=== PATIENT | female | born 1990 | race Caucasian/White ===

== ENCOUNTER → 2019-03-14 16:48 | Outpatient (CLI) | payer OTHER, SELFPAY ==
[2018-10-18 10:30] VITALS: BMI 23.3
[2019-03-14 19:25] LABS: Chlamydia Trachomatis by PCR Negative (Negative); Neisserai gonorrhoeae by PCR Negative (Negative); Probe Check PASS; Sample Adequacy Control PASS; Specimen Processing Control PASS
[2019-03-20 13:29] LABS: HPV Reflexed? NOT INDICATED
== END ==
PROVIDERS: Visit Provider Obstetrics & Gynecology
DX: Z11.3 Encounter for screening for infections with a predominantly sexual mode of transmission (principal); Z12.4 Encounter for screening for malignant neoplasm of cervix; Z32.01 Encounter for pregnancy test, result positive
CPT/HCPCS: 87491; 87591; 88175; G0145

== ENCOUNTER → 2019-03-29 14:01 | Outpatient (CLI) | payer OTHER, SELFPAY ==
[2018-10-18 10:30] VITALS: BMI 23.3
--- NOTE | 2019-03-29 14:04 | US_ITS ---
STUDY: FIRST TRIMESTER OBSTETRICAL ULTRASOUND REASON FOR EXAM: Female, 29 years old early viability LMP: TECHNIQUE: Transvaginal TECHNICAL QUALITY: Adequate. PRIOR ULTRASOUND: None. FINDINGS: There is visualization of a single gestational sac in a normal intrauterine position. The mean sac diameter (MSD) measures 3.8 cm, indicating an estimated gestational age (EGA) of 9 weeks, 2 days. The gestational sac shape is within normal limits. There is a visualized yolk sac. The yolk sac measures 5 mm. The placenta is non-visualized. There is visualization of a live embryo. The crown-rump length (CRL) measures 3.3 cm, indicating an estimated gestational age (EGA) of 9 weeks, 6 days. There is demonstrated cardiac activity with a heart rate of 164 bpm. The estimated gestation age (EGA) by LMP is 10 weeks, 1 days. The estimated date of delivery (ANTONIO) by LMP is October 24, 2019. The estimated gestation age (EGA) by US is 9 weeks, 4 days. The estimated date of delivery (ANTONIO) by US is October 28, 2019. The uterus measures 11.6 x 6.7 x 5.7 cm. There is no demonstrated uterine fibroid. The cervix is closed. Small subchorionic hematoma noted measuring 2 x 2 0.1 x 0.7 cm The right ovary measures 3 x 2.5 x 2.2 cm. There is a small cyst likely corpus luteum measuring 1.3 x 1.2 x 0.9 cm. There is no visualized right adnexal mass or complex lesion. The left ovary measures 2.8 x 2.3 x 1.5 cm. There is no left ovarian cyst. There is no visualized left adnexal mass or complex lesion. There is no fluid in the cul de sac. US/Init OB < 14Wks US IMPRESSION: Viable intrauterine gestation approximately 9-10 weeks gestational age. Small subchorionic hemorrhage Right ovarian cyst likely corpus luteum Electronically Signed: Silvio Chavarria MD at 23:08 EDT , Service support ,
== END ==
PROVIDERS: Referring Provider Obstetrics & Gynecology; Visit Provider Obstetrics & Gynecology
DX: Z32.01 Encounter for pregnancy test, result positive (principal)
CPT/HCPCS: 76801

== ENCOUNTER → 2019-04-11 15:09 | Outpatient (CLI) | payer OTHER, SELFPAY ==
[2018-10-18 10:30] VITALS: BMI 23.3
[2019-04-11 16:05] LABS: Absolute Lymphocyte Count 1.86 X10^3/uL (0.83-4.51); Basophil# 0.02 X10^3/uL; Basophil% 0.3 % (0-1); Eosinophil# 0.09 X10^3/uL; Eosinophils% 1.4 % (0-5); Hemoglobin 13.5 g/dL (12.0-15.0); Lymphocyte # 1.86 X10^3/ul (4.0); Lymphocyte % 28.7 % (19-41); Mean Corp Hgb Conc 34.6 g/dL (32-36); Mean Corpuscular Hgb 30.1 pg (27.0-32.0); Mean Corpuscular Volume 86.9 fL (81-99); Mean Platelet Vol. 10.2 fl (6.2-12.0); Monocyte# 0.44 X10^3/uL; Monocyte% 6.8 % (0-10); NRBC Flagged by Analyzer 0 % (0-5); Neutrophil # 4.04 X10^3/uL (2.7-7.7); Neutrophil % 62.5 % (47-70); Platelet Count 230 K/mm3 (150-450); RBC Distribution Width SD 44.3 fl (35.1-43.9); Red Blood Count 4.49 M/mm3 (4.2-5.4); White Blood Count 6.5 K/mm3 (4.4-11.0)
[2019-04-11 16:10] LABS: Amphetamine Urine VISTA NEGATIVE (<1000 ng/mL); Barbiturate Urine VISTA NEGATIVE (< 200 ng/mL); Benzodiazepine Urine VISTA NEGATIVE (< 200 ng/mL); Cocaine Urine VISTA NEGATIVE (< 300 ng/mL); Ecstacy Urine VISTA NEGATIVE (< 500 ng/mL); Methadone Urine VISTA NEGATIVE (< 300 ng/mL); PCP Urine VISTA NEGATIVE (< 25 ng/mL); THC Urine VISTA NEGATIVE (< 50 ng/mL); Vista UDS pH Range 6
[2019-04-11 16:15] LABS: Color, Urine Straw (Yellow); Glucose, Dipstick Normal (Normal); Ketone-Dipstick Negative (Negative); Leukocyte Esterase-Dipstick Negative /ul (Negative); Nitrite-Dipstick Negative (Negative); Occult Blood-Urine Negative /ul (Negative); Protein-Dipstick Negative (Negative); Urine Bilirubin Dipstick Negative (Negative); Urine Clarity Clear (Clear); Urine Urobilinogen Normal (Normal); Urine pH 6.5 (5.0 - 8.0)
[2019-04-11 16:28] LABS: Thyroid Stim Hormone (TSH) 2.31 uIU/mL (0.358-3.74)
[2019-04-12 09:40] LABS: HIV - WCH Non-Reactive (Nonreactive); Hepatitis B Surface Antigen Non-Reactive (Nonreactive); Hepatitis C Antibody Non-Reactive (Nonreactive); Rubella IgG 233.7 IU/mL; Vitamin D,25 Hydroxy 23.2 ng/mL (29.95-100.01)
[2019-04-15 02:37] LABS: Prenatal RPR NONREACTIVE (NONREACTIVE)
== END ==
PROVIDERS: Visit Provider Obstetrics & Gynecology
DX: Z34.81 Encounter for supervision of other normal pregnancy, first trimester (principal)
CPT/HCPCS: 36415; 80307; 81002; 82306; 84443; 85025; 86703; 86762; 86803; 87340

== ENCOUNTER 2019-05-06 21:05 | Emergency (ER) | payer OTHER, BC, SELFPAY ==
[2018-10-18 10:30] VITALS: BMI 23.3
[2019-05-06 21:06] VITALS: BP 133/83; PULSE 110; RESP 20; TEMP 36.8; O2SAT 96; BMI 21.7
--- NOTE | 2019-05-06 22:04 | ED.RN ---
[facility] [facility] called for OB a 3rd time.
--- NOTE | 2019-05-06 22:11 | ED.DCSUM_ITS ---
- ER Visit Summary Date of Service: 05/06/19 Chief Complaint: Possible miscarriage History of Present Illness: The patient is a 29 F who is G2, P1 at [address] Elisa Oleary. She presents today for possible miscarriage. She noted a mass protruding from her vagina. She took a photograph of it. She had some pain to the area. She is not having bleeding or fluid leakage. No GI or symptoms. Her first was complicated by preeclampsia, uterine atony, and a second-degree tear. So far this has been uneventful. Physical Examination: Afebrile and vital signs unremarkable except for heart rate of 110. She is crying but in otherwise no acute distress. The abdomen is soft and nontender. Pelvic exam was chaperoned by JOSE MANUEL Sen. There is no obvious mass, bleeding, or fluid drainage. Cervix in normal position and closed, nontender. No significant tenderness or other abnormal findings. Test Results: Bedside ultrasound showed intrauterine with good movements and heartbeat of 144. Emergency Department Course and Treatment: History and exam performed as above. Bedside ultrasound performed. I do not appreciate any sign of bleeding or fluid drainage. No evidence of mass, prolapse. Patient was discussed with Dr. Art who felt that this could represent prolapse, but was reassured that there was no bleeding or fluid drainage, and that the intrauterine otherwise appeared unremarkable. She advised to have the patient lay down if this happens again. She believes it will be self-limiting and resolve as the progresses. No further orders or recommendations. Patient will be discharged to follow-up as an outpatient. Return for any new or worsening issues. Treatment Plan: As above Disposition: Discharge Impression: 1. Uterine prolapse This note was generated with The [employer] software. It may contain incorrect words, spelling, and punctuation that were not noted in review of the chart prior to signing ED Disposition - Plan for ED Patient: Instructions: What Is Pelvic Organ Prolapse? Referrals: Mary Harman MD [STAFF PHYSICIAN] -
[2019-05-06 22:17] VITALS: BP 111/82; PULSE 86; RESP 16; O2SAT 100
== END 2019-05-06 22:17 | disposition home or self-care (01) ==
LOC: ED 21:56
PROVIDERS: Emergency Provider Emergency Medicine
DX: O34.522 Maternal care for prolapse of gravid uterus, second trimester (principal); Z3A.16 16 weeks gestation of pregnancy
CPT/HCPCS: 99282

== ENCOUNTER → 2019-06-03 13:18 | Outpatient (CLI) | payer OTHER, BC, SELFPAY ==
[2019-05-06 21:06] VITALS: BMI 21.7
--- NOTE | 2019-06-03 13:24 | US_ITS ---
STUDY: SECOND AND THIRD TRIMESTER OBSTETRICAL ULTRASOUND REASON FOR EXAM: Female, 29 years old LMP: 01/17/2019 TECHNIQUE: Transabdominal TECHNICAL QUALITY: Adequate. PRIOR ULTRASOUND: 03/29/2019 FINDINGS: There is a single intrauterine fetus. The fetus is in a transverse lie with the head on the maternal right side. There is demonstrated cardiac activity with a heart rate of 138 bpm. There is a normal amniotic fluid volume. The largest amniotic fluid pocket measures 6.3 cm. The amniotic fluid index (SAMUEL) is cm. The placenta is anterior with a complete previa. There are Grade 0 placental changes. The cervix measures 4.0 cm in length. The adnexal regions are not visualized. BIOMETRY: BPD: 4.7 cm: 20 weeks, 0 days HC: 17.1 cm: 19 weeks, 5 days AC: 16.0 cm: 21 weeks, 0 days FL: 3.0 cm: 19 weeks, 1 days CI: 80.11 FL/BPD: 63.72 FL/HC: 17.34 FL/AC: 18.64 HC/AC: 1.07 age by current US: 19 weeks, 5 days. ANTONIO by current US: 10/23/2019. Estimated weight: 335 grams, +/- 50 grams, 69 %. Age by LMP: 19 weeks, 4 days. ANTONIO by LMP: 10/24/2019. ANATOMY: Gender: Male Cranium: Normal lateral ventricles. Normal choroid plexus. Normal cerebellum. Normal cisterna magna. Normal face, nose and lips. Chest: Normal 4-chamber heart. Echogenic intracardiac focus. Abdomen/Pelvis: Normal diaphragm. Normal stomach. Normal abdominal wall. Normal cord insertion. Normal 3 vessel cord. Normal kidneys. Normal bladder. Spine: Normal cervical spine. Normal thoracic spine. Normal lumbar spine. Normal sacrum. Extremities: Normal bilateral upper extremities. Normal bilateral lower extremities. US/OB Anatomy Scan IMPRESSION: 1. Living intrauterine of 19 weeks 5 days as described above. 2. Anterior placenta with complete placenta previa. 3. Echogenic intracardiac focus Electronically Signed: Prashanth Dan MD at 8:51 EST Tel , Service support , Refer to transabdominal transvaginal pelvic ultrasound. Electronically Signed: Prashanth Dan MD at 8:51 EST Tel , Service support ,
== END ==
PROVIDERS: Referring Provider Obstetrics & Gynecology; Visit Provider Obstetrics & Gynecology
DX: Z34.82 Encounter for supervision of other normal pregnancy, second trimester (principal); Z3A.19 19 weeks gestation of pregnancy
CPT/HCPCS: 76805; 76817

== ENCOUNTER → 2019-07-12 13:10 | Outpatient (CLI) | payer OTHER, BC, SELFPAY ==
[2019-07-12 13:11] VITALS: BMI 21.7
== END ==
PROVIDERS: Referring Provider Physician Assistant Surgical; Visit Provider Physician Assistant Surgical
DX: S30.0XXA Contusion of lower back and pelvis, initial encounter (principal)

== ENCOUNTER → 2019-07-18 12:22 | Outpatient (CLI) | payer OTHER, BC, SELFPAY ==
[2019-07-12 13:11] VITALS: BMI 21.7
--- NOTE | 2019-07-18 12:24 | US_ITS ---
STUDY: SECOND AND THIRD TRIMESTER OBSTETRICAL ULTRASOUND - LIMITED REASON FOR EXAM: Female, 29 years old placental location LMP: January 17, 2019. PRIOR ULTRASOUND: Comparison is made with prior study dated June 03, 2019. TECHNIQUE: Transabdominal TECHNICAL QUALITY: Adequate. FINDINGS: There is a single intrauterine fetus. The fetus is in a cephalic presentation. There is demonstrated cardiac activity with a heart rate of 148 bpm. There is a normal amniotic fluid volume. The largest amniotic fluid pocket measures 6.4 cm x 5.2 cm. The amniotic fluid index (SAMUEL) is is within normal limits. The placenta is anterior with a marginal previa. The tip of the placenta is 5 mm away from the cervical os. There are Grade 0 placental changes. The cervix measures 4.1 cm in length. Age by LMP: 26 weeks, 0 days. ANTONIO by LMP: October 24, 2019. age by prior US: 25 weeks, 3 days. ANTONIO by prior US: October 28, 2019. US/OB Limited (No Biometrics) IMPRESSION: The tip of the anterior placenta is 5 mm away from the cervical os. Electronically Signed: Jc Gaytan, at 14:25 EST , Service support ,
== END ==
PROVIDERS: Referring Provider Obstetrics & Gynecology; Visit Provider Obstetrics & Gynecology
DX: Z34.82 Encounter for supervision of other normal pregnancy, second trimester (principal)
CPT/HCPCS: 76815; 76817

== ENCOUNTER → 2019-08-02 13:26 | Outpatient (CLI) | payer OTHER, BC, SELFPAY ==
[2019-07-12 13:11] VITALS: BMI 21.7
[2019-08-02 14:03] LABS: Hematocrit 36.4 % (37-47); Hemoglobin 12.4 g/dL (12.0-15.0); Mean Corp Hgb Conc 34.1 g/dL (32-36); Mean Corpuscular Hgb 32.2 pg (27.0-32.0); Mean Corpuscular Volume 94.5 fL (81-99); Mean Platelet Vol. 9.8 fl (6.2-12.0); POSITIVE COUNT YES; RBC Distribution Width CV 13.8 % (11.6-14.6); RBC Distribution Width SD 47.7 fl (35.1-43.9); Red Blood Count 3.85 M/mm3 (4.2-5.4); White Blood Count 8.7 K/mm3 (4.4-11.0)
[2019-08-02 14:25] LABS: Glucose Challenge Gest 1H 50g 76 mg/dL (70-140)
[2019-08-02 14:43] LABS: Vitamin D,25 Hydroxy 41.9 ng/mL (29.95-100.01)
[2019-08-02 14:48] LABS: Scan Indicated on CBC? Y/N YES- FLAGS NOTED
== END ==
PROVIDERS: Referring Provider Obstetrics & Gynecology; Visit Provider Obstetrics & Gynecology
DX: Z34.83 Encounter for supervision of other normal pregnancy, third trimester (principal)
CPT/HCPCS: 36415; 82306; 82950; 85027

== ENCOUNTER → 2019-08-30 11:59 | Outpatient (CLI) | payer OTHER, BC, SELFPAY ==
[2019-07-12 13:11] VITALS: BMI 21.7
[2019-08-30 13:12] LABS: Platelet Count 124 K/mm3 (150-450)
[2019-08-30 13:39] LABS: AST(SGOT) 13 U/L (15-37); Alanine Aminotransfer ALT/SGPT 15 U/L (13-56); Albumin, Serum 2.8 g/dL (3.2-5.0); Alkaline Phosphatase 93 U/L (45-117); Bilirubin, Direct 0.08 mg/dL (0.00-0.30); Globulin 4.2 g/dL (2.2-4.2)
== END ==
PROVIDERS: Visit Provider Obstetrics & Gynecology
DX: O99.113 Other diseases of the blood and blood-forming organs and certain disorders involving the immune mechanism complicating pregnancy, third trimester (principal); D69.6 Thrombocytopenia, unspecified; Z3A.00 Weeks of gestation of pregnancy not specified
CPT/HCPCS: 36415; 80076; 85049

== ENCOUNTER → 2019-09-27 10:30 | Outpatient (CLI) | payer OTHER, BC, SELFPAY ==
[2019-07-12 13:11] VITALS: BMI 21.7
== END ==
PROVIDERS: Referring Provider Obstetrics & Gynecology; Visit Provider Obstetrics & Gynecology
DX: Z36.85 Encounter for antenatal screening for Streptococcus B (principal)
CPT/HCPCS: 87081

== ENCOUNTER 2019-10-04 09:35 | Inpatient (IN) | payer OTHER, BC, SELFPAY ==
[2019-07-12 13:11] VITALS: BMI 21.7
[2019-10-04] VITALS (20 sets, daily range): BP systolic 99–129; BP diastolic 55–79; PULSE 72–98; RESP 16–18; TEMP 35.9–36.5; O2SAT 97–99; BMI 26.2
[2019-10-04] MEDS: Lactated Ringers 1,000 ML 999 ML IV (10:13)
[2019-10-04 10:26] LABS: Absolute Lymphocyte Count 1.78 X10^3/uL (0.83-4.51); Absolute Neutrophil Count 5.6 X10^3/uL (2.0-7.7); Basophil# 0.02 X10^3/uL; Basophil% 0.2 % (0-1); Eosinophil# 0.08 X10^3/uL; Hematocrit 34.4 % (37-47); Hemoglobin 11.8 g/dL (12.0-15.0); Lymphocyte # 1.78 X10^3/ul (4.0); Mean Corp Hgb Conc 34.3 g/dL (32-36); Mean Corpuscular Hgb 31.6 pg (27.0-32.0); Mean Corpuscular Volume 92.2 fL (81-99); Mean Platelet Vol. 10.6 fl (6.2-12.0); Monocyte# 0.58 X10^3/uL; Monocyte% 7.2 % (0-10); NRBC Flagged by Analyzer 0 % (0-5); Neutrophil # 5.55 X10^3/uL (2.7-7.7); Neutrophil % 68.6 % (47-70); Platelet Count 133 K/mm3 (150-450); RBC Distribution Width CV 13.3 % (11.6-14.6); RBC Distribution Width SD 44.8 fl (35.1-43.9); Red Blood Count 3.73 M/mm3 (4.2-5.4); White Blood Count 8.1 K/mm3 (4.4-11.0)
[2019-10-04] MEDS: Lactated Ringers 1,000 ML 150 ML IV (11:07)
[2019-10-04] MEDS: Sodium Citrate/Citric Acid 30 ML UDC PO (11:35)
[2019-10-04] MEDS: Cefazolin 2 GM in 0.9% Normal Saline 100 ML IV (12:01)
[2019-10-04] MEDS: Ondansetron 4 MG/2 ML Vial IV (12:32)
--- NOTE | 2019-10-04 13:14 | HP.PCM_ITS ---
- Problem List (1) 37 weeks gestation of Status: Acute (2) Marginal placenta previa Status: Acute History Date of Admission: 10/04/19 Final ANTONIO: 10/24/19 Final ANTONIO Source: US <20 weeks Gestational age: 37 Weeks and 1 Days History of this : This is a 29 year-old, G [2], P [0101], at 37 1/7 weeks gestational age presents for scheduled section for persistent marginal placenta previa. Surgical History: Surgical History (Last Reviewed 10/18/18 @ 10:18 by Imelda Small) H/O oral surgery Z98.890 H/O spinal fusion Z98.1 Allergies ciprofloxacin [From Cipro] Adverse Reaction (Unknown, Verified 10/04/19 09:45) Unknown GI upset, body aches Home Medications: Home Medications Cholecalciferol (Vitamin D3) [Vitamin D3] 4,000 unit PO DAILY 05/06/19 Pnv No.95/Ferrous Fum/Folic AC [ Multivitamin Tablet] 1 ea PO DAILY 05/06/19 aspirin 81 mg chewable tablet 162 mg PO DAILY 07/12/19 Smoking Status: Never smoker Alcohol: None Substance Use Type: Sleep Aides Number of Fetus(es): 1 NST - FHR Rate Baby A Baseline: 140s History Past Pregnancies: Past Pregnancies Delivery Date Name GA/ Weeks Outcome Route Wt Sex Labor Length Anesthesia Delivery Location FOB 08/2018 [place] 36 Severe Preeclampsia [id number] M 7 Epidural [facility] Labs: Mom's Labs & Results 10/04/19 10/04/19 10:10 10:10 WBC 8.1 RBC 3.73 L Hgb 11.8 L Hct 34.4 L MCV 92.2 MCH 31.6 MCHC 34.3 RDW Std Deviation 44.8 H RDW Coeff of Miguel Angel 13.3 Plt Count 133 L MPV 10.6 Immature Gran % (Auto) 1.000 H Neut % (Auto) 68.6 Lymph % (Auto) 22.0 [place] % (Auto) 7.2 Eos % (Auto) 1.0 Baso % (Auto) 0.2 Absolute Neuts (auto) 5.6 Absolute Lymphs (auto) 1.78 Nucleated RBC % 0 Blood Type A POSITIVE Antibody Screen NEGATIVE Course Did the patient receive Yes care? Labs Blood Type: A RH: POSITIVE RPR/VDRL/Syphilis Nonreactive Rubella status Immune HbSAg Negative Date Done: 04/11/19 Chlamydia Negative Gonorrhea Negative HIV/AIDS Non-Reactive Group B Strep: Negative Current Obstetrical History Gestational Diabetes No Incompetent Cervix No Infertility No IUGR No Macrosomia No Hypertension/Pre-eclampsia No Placenta Previa/Abruption Yes: marginal PTL/PROM No Uterine anomaly No Oligohydramnios No Polyhydramnios No Multiple gestation No Past Medical History Asthma No Diabetes No Hypertension No Heart disease No Mitral valve prolapse No Neurologic/Seizure disorder/ No Migraines Kidney disease No Liver disease No Varicosities No Clotting disorders/Hx of DVT No Thyroid Dysfunction No Other medical diseases No Psychiatric disorders No Major trauma No Abnormal PAP smear No Sleep apnea No Mammogram in the last 2 years No Social History Marital Status: Alleged father Jules Ordonez Hx Smoking No Smoking Status Never smoker Substance Use Type Sleep Aides What date/time did you last unisom in early - not since week 18 of use any of the above? gest. Expected Infant Delivery Method: Spontaneous Vaginal Number of Visits: 9 Physical Exam Vitals: Vital Signs Temp Pulse BP Pulse Ox 97.4 F L 78 101/69 99 10/04/19 10:30 10/04/19 10:30 10/04/19 10:30 10/04/19 10:30 General: Alert, Oriented x3, Cooperative, No apparent distress HEENT: Atraumatic, Normocephalic Lungs: Normal air movement Abdomen: Soft, Non Tender, Non-Distended, Gravid Extremities:: No edema Neurological: Neuro grossly intact Estimated gestational size: Appropriate for gestational size Presentation: Cephalic Assessment/Plan All Active Problems (Last Reviewed 10/18/18 @ 10:18 by Imelda Small) 37 weeks gestation of (Acute) Marginal placenta previa (Acute) Coccyx contusion (Acute) History of pre-eclampsia (Acute) This is a 29 year-old, G [2], P [0101], at 37 1/7 weeks gestational age. -Proceed with primary C/S as planned -Patient and spouse given opportunity to ask questions and questions answered to their satisfaction.
--- NOTE | 2019-10-04 13:18 | PCM.OPRPT ---
Problem List (1) 37 weeks gestation of Status: Acute (2) Marginal placenta previa Status: Acute Delivery Classification: Scheduled Final ANTONIO: 10/24/19 Gestational age: 37 Weeks and 1 Days practice administrator: Toshia Corado Type of Anesthesia:: Spinal Date of Procedure: 10/04/19 Pre-Operative Diagnosis: 37 1/7wga, marginal placenta previa Post-Operative Diagnosis: 37 1/7wga, marginal placenta previa Indications: 29yo @ 37 1/7wga with persistent marginal placenta previa presenting for scheduled section. She was counseled on surgical r/b/i/a and desired to proceed. Indications for : Placenta Previa Description of Procedure: The patient was taken to the operating room and spinal analgesia was administered. She is placed in a dorsal supine position with left lateral tilt. The perineum and abdomen were prepped and draped in sterile fashion. And the spinal was found to be adequate. A Pfannenstiel incision was made using a scalpel and brought down to incise the subcutaneous tissue and rectus fascia at the midline. Subcutaneous tissue was bluntly dissected off the fascia laterally. The fascial incision was dissected laterally and cephalad using curved Montes scissors. The superior leaflet of the rectus fascia was grasped using Nolan clamps and bluntly dissected and sharply dissected from the underlying rectus muscle. In a similar fashion the inferior rectus fascia was dissected from the underlying muscle. The rectus muscles were bluntly at the midline. The peritoneum was identified and entered [sharply]. The bladder blade was placed into the abdomen and the vesicouterine peritoneal fold identified. The fold was incised and a bladder flap created. Bladder blade was then repositioned to the abdomen. A low transverse hysterotomy was made using the [Metzenbaum scissors] to level of the membranes. The hysterotomy was extended bluntly cephalad and caudad. The membranes were then ruptured revealing clear fluid. The head was elevated and brought to the level of the hysterotomy and the infant delivered revealing vigorous [male] infant. The cord was doubly clamped and cut after 30 seconds. The infant was passed to awaiting [nursery personnel]. The placenta was [expressed] from the uterus and appeared intact on inspection. The uterus was cleared of debris. The hysterotomy was then repaired using 0 Vicryl running lock suture. A second imbricating layer was also placed for additional hemostasis. The bladder blade was removed. The anterior cul-de-sac was cleared of debris. The peritoneum and rectus muscles were reapproximated using 2-0 Vicryl running suture. The rectus fascia was closed using 0 Vicryl running suture. The subcutaneous tissue was sponge irrigated and small capillary bleeding controlled using the Bovie device. The subcutaneous tissue was reapproximated using 2-0 Vicryl. The skin was closed using 4-0 Monocryl subcuticularly. This was followed by Cavilon and a Mepilex occlusive dressing was placed over the incision. The fundus was firm. The patient was then transferred to the recovery room without complication. Sponge, instrument, and needle counts were correct ?2. Amniotic Membrane Rupture Type: Artificial Amniotic Fluid Description: Clear Placenta Disposition: [facility] Drain: Funk to straight drain Fluids Replaced: 1000 ml Cord Entanglement: None Nuchal Cord Compression: Without compression Cord Vessel Description: 3 Vessels Esitmated Blood Loss (ml): 700 ml Infant Gender: Male (1 minute): 8 (5 minute): 9 Delayed cord clamping: Yes Antibiotic Given: Ancef 2 grams IV x1 Pt instructed on risks of surgery: Bleeding, Anesthesia Risks, Infection, Injury to surrounding structure(s) including bowel and bladder Complications: None - Admit VTE Documentation VTE Present on Admission: No VTE Mechan Device Prophylaxis: SCD's VTE Pharm Prophylaxis ordered?: No
[2019-10-04] MEDS: Oxytocin 30 units/NS 500 ml 30 UNITS/500 ML IV.SOLN 167 UNITS IV (13:24)
[2019-10-04] MEDS: proCHLORPERazine 10 MG/2 ML Vial IV (14:24)
[2019-10-04] MEDS: 0.9% Saline Lock 10 ML Syringe IV (14:25)
[2019-10-04] MEDS: Lactated Ringers 1,000 ML 100 ML IV (15:49)
--- NOTE | 2019-10-04 15:54 | NURSING ---
Indwelling bae catheter present. WNL.
[2019-10-04] MEDS: Lactated Ringers 500 ML 999 ML IV (17:35)
[2019-10-04] MEDS: Ketorolac 30 MG/ML Syringe IV (21:28)
[2019-10-05 00:30] VITALS: BP 120/74; PULSE 86; RESP 16; TEMP 37.2; O2SAT 99
[2019-10-05 03:30] VITALS: BP 104/63; PULSE 82; RESP 16; TEMP 36.8
[2019-10-05] MEDS: 0.9% Saline Lock 10 ML Syringe IV ×4 (03:35→20:53)
[2019-10-05] MEDS: Ketorolac 30 MG/ML Syringe IV ×3 (03:35→14:57)
[2019-10-05 05:31] LABS: Hematocrit 29.3 % (37-47); Hemoglobin 9.9 g/dL (12.0-15.0); Mean Corp Hgb Conc 33.8 g/dL (32-36); Mean Corpuscular Hgb 31.2 pg (27.0-32.0); Mean Corpuscular Volume 92.4 fL (81-99); Mean Platelet Vol. 10.3 fl (6.2-12.0); Platelet Count 121 K/mm3 (150-450); RBC Distribution Width CV 13.3 % (11.6-14.6); RBC Distribution Width SD 44.9 fl (35.1-43.9); Red Blood Count 3.17 M/mm3 (4.2-5.4); White Blood Count 13.5 K/mm3 (4.4-11.0)
[2019-10-05 08:00] VITALS: BP 106/72; PULSE 70; RESP 18; TEMP 36.7
--- NOTE | 2019-10-05 08:26 | PN.OBGYN_ITS ---
Patient Problems: Active and Suspected Problems (Last Reviewed 10/18/18 @ 10:18 by Imelda Small) 37 weeks gestation of (Acute) Marginal placenta previa (Acute) Subjective: Feeling well with mild pain. Feeling the pain more today. IV pain medication is working well though. Denies heavy bleeding or other concerns. Objective: VSS. Urinating well now. Fundus u/1, firm, midline. Incision small old drainage noted, intact, no s/s of infection. Lochia rubra light. - Physical Exam Vitals/I&O's: Vital Signs Temp Pulse Resp BP Pulse Ox 98.2 F 82 16 104/63 99 10/05/19 03:30 10/05/19 03:30 10/05/19 03:30 10/05/19 03:30 10/05/19 00:30 Oxygen Delivery Method Room Air Weight: 73.6 kg Body Mass Index (BMI) 26.2 Intake and Output for Last 24 Hours 10/03/19 10/04/19 10/05/19 23:59 23:59 23:59 Intake Total 5847.23 / 5847.23 1368.33 / 1368.33 Output Total 1150 / 1150 1000 / 1000 Balance 4697.23 / 4697.23 368.33 / 368.33 General: Alert, Oriented x3, Cooperative HEENT: Atraumatic, PERRLA, EOMI, Normocephalic Neck: Supple, No JVD, Negative Carotid Bruits Lungs: Clear to auscultation, Normal air movement Cardiovascular: Regular rate, No murmurs Abdomen: Bowel Sounds Present, Soft, Hypoactive Bowel Sounds, - - incision CDI Extremities: No edema, Capillary Refill Less than 3 Seconds Skin: No rashes, No breakdown Musculoskeletal: No Tenderness to Palpation of Joints or Extremities Neurological: Cranial nerves II-XII grossly intact Psych/Mental Status: Normal Affect, Appropriate Laboratory Results 10/04/19 10:10: WBC 8.1, RBC 3.73 L, Hgb 11.8 L, Hct 34.4 L, MCV 92.2, MCH 31.6, MCHC 34.3, RDW Std Deviation 44.8 H, RDW Coeff of Miguel Angel 13.3, Plt Count 133 L, MPV 10.6, Immature Gran % (Auto) 1.000 H, Neut % (Auto) 68.6, Lymph % (Auto) 22.0, [place] % (Auto) 7.2, Eos % (Auto) 1.0, Baso % (Auto) 0.2, Absolute Neuts (auto) 5.6, Absolute Lymphs (auto) 1.78, Nucleated RBC % 0 10/04/19 10:10: Blood Type A POSITIVE, Antibody Screen NEGATIVE 10/05/19 05:25: WBC 13.5 H, RBC 3.17 L, Hgb 9.9 L, Hct 29.3 L, MCV 92.4, MCH 31.2, MCHC 33.8, RDW Std Deviation 44.9 H, RDW Coeff of Miguel Angel 13.3, Plt Count 121 L, MPV 10.3 Current Medications Acetaminophen (Tylenol) 1,000 mg PO Q8H PRN PRN Reason: Pain Score 1-3/10 Bisacodyl (Dulcolax) 10 mg RECTAL UD PRN PRN Reason: If no BM Diphenhydramine HCl (Benadryl) 25 mg PO Q6H PRN PRN PRN Reason: ITCHING Stop: 10/05/19 13:39 Hydrocortisone (Hytone) 1 applic TOPICAL TID PRN PRN; Protocol PRN Reason: Discomfort Naloxone HCl 4 mg/ Dextrose 504 mls @ 0 mls/hr IV .Q0M PRN; Protocol PRN Reason: Respiratory depression Naloxone HCl 4 mg/ Dextrose 504 mls @ 0 mls/hr IV .Q0M PRN; Protocol PRN Reason: To maintain Resp. rate >10 Ibuprofen (Motrin) 600 mg PO Q6H PRN PRN PRN Reason: Pain Score 1-3/10 Ketorolac Tromethamine (Toradol (Bkc)) 30 mg IV Q6H CARMENCITA Stop: 10/06/19 15:01 Last Admin: 10/05/19 08:17 Dose: 30 mg Documented by: Methylergonovine Maleate (Methergine) 0.2 mg IM X1 PRN PRN Reason: Uterine Atony Nalbuphine HCl (Nubain) 5 mg IV Q3H PRN PRN PRN Reason: ITCHING Stop: 10/05/19 13:39 Naloxone HCl (Narcan) 0.02 mg IV Q1M PRN PRN Reason: RR <10 and pt unresponsive Ondansetron HCl (Zofran) 4 mg IV Q4H PRN PRN PRN Reason: Nausea Last Admin: 10/04/19 12:32 Dose: 4 mg Documented by: Oxycodone HCl (Oxyir) 5 - 10 mg PO Q4H PRN PRN PRN Reason: Pain Score 4-10/10 Multivit/Folic Acid/Iron (Prenatabs Fa) 1 tablet PO DAILY@1200 CARMECNITA Prochlorperazine Edisylate (Compazine Iv) 10 mg IV Q6H PRN PRN PRN Reason: NAUSEA Last Admin: 10/04/19 14:24 Dose: 10 mg Documented by: Senna/Docusate Sodium (Senokot-S, Hillary-Colace) 0 tablet PO DAILY PRN PRN Reason: Constipation Simethicone (Mylicon) 80 mg PO PCHS PRN PRN Reason: Indigestion/stomach pain Sodium Chloride () 5 - 15 ml IV UD PRN PRN Reason: SALINE FLUSH Last Admin: 10/05/19 08:17 Dose: 10 ml Documented by: Medical Necessity - Tobacco Use Smoking Status: Never smoker Assessment/Plan All Active Problems (Last Reviewed 10/18/18 @ 10:18 by Imelda Small) 37 weeks gestation of (Acute) Marginal placenta previa (Acute) Coccyx contusion (Acute) History of pre-eclampsia (Acute) A/P: POD #1 for marginal previa Bottle feeding infant son Normal involution and lochia Pain tolerated well with IV medication Normal course Expect discharge tomorrow
[2019-10-05] MEDS: Prenatal Vits Tablet 1 TABLET PO (12:11)
[2019-10-05] MEDS: Acetaminophen 500 MG Tablet 1000 MG PO ×2 (12:11→21:16)
[2019-10-05 12:17] VITALS: BP 107/64; PULSE 79; RESP 14; TEMP 36.6
[2019-10-05 16:37] VITALS: BP 107/60; PULSE 64; RESP 18; TEMP 36.3
[2019-10-05 20:46] VITALS: BP 110/66; PULSE 74; RESP 16; TEMP 36.6
[2019-10-05] MEDS: Ibuprofen 600 MG Tablet PO (22:17)
[2019-10-06 02:22] VITALS: BP 114/78; PULSE 78; RESP 16; TEMP 36.4
[2019-10-06] MEDS: Acetaminophen 500 MG Tablet 1000 MG PO (05:13)
[2019-10-06 07:40] VITALS: BP 122/77; PULSE 70; RESP 16; TEMP 36.2
[2019-10-06] MEDS: Ibuprofen 600 MG Tablet PO (08:01)
--- NOTE | 2019-10-06 08:02 | DCINST_ITS ---
Discharge Diet: No Restrictions Discharge Activity: May Not Drive - for 2 weeks or while taking narcotic pain meds., May Shower, May Take a Tub Bath - in 7 days. May resume sexual activity in: 4-6 weeks Lifting Restrictions: 20 pounds Additional Activity Instructions:: Nothing in the vagina for 4-6 weeks. You may return to work/school in 6 weeks. Call your doctor if your incision/area has: Continuous Slow Oozing, Sudden Increased Bleeding, Increased Pain/ Swelling, Increased Redness, Foul Smelling Discharge Call your doctor if you observe: Fever of 101 or Higher Suture Line Care: Avoid Pulling/Pushing, Avoid Pinching/Bending Remove Dressing in (days):: 5 Cleanse incision/area with: Soap & Water - after dressing removal Additional Instructions: If you experience any of the following, contact your healthcare provider. * Bleeding that soaks a pad every hour for 2 hours * Fever 100.4 or higher * Unrelieved incision or abdominal pain * Swelling, redness, discharge or bleeding from your incision or episiotomy site * Your incision begins to separate * Problems urinating (including inability to urinate or burning while urinating). * Visual changes * Severe headache * Flu-like symptoms * Pain or redness in one of both of your breasts * Pain, warmth, tenderness or swelling in your legs, especially the calf area * Frequent nausea and vomiting * Symptoms of depression or anxiety If you experience any of the following, call 911 or go to the nearest Emergency Room. * Chest pain * Problems breathing * Seizure activity * Partial or complete paralysis of a body part, slurred speech, weakness or drooping of the face, or a sudden inability to walk or hold your balance Allergies/Adverse Reactions: Allergies ciprofloxacin [From Cipro] Adverse Reaction (Unknown, Verified 10/04/19 09:45) Unknown GI upset, body aches Medications to take at Discharge Cholecalciferol (Vitamin D3) [Vitamin D3] 4,000 unit PO DAILY 05/06/19 Pnv No.95/Ferrous Fum/Folic AC [ Multivitamin Tablet] 1 ea PO DAILY 05/06/19 aspirin 81 mg chewable tablet 162 mg PO DAILY 07/12/19 Oxycodone [Oxyir] 5 - 10 mg PO Q4H PRN PRN 3 Days #10 tablet 10/06/19 The following prescriptions were given: Oxycodone [Oxyir] 5 - 10 mg PO Q4H PRN PRN 3 Days #10 tablet PRN Reason: Pain Score 4-10/10 Transmission Status: Sent to [facility] Follow-Up: Call to make an appointment with your doctor for an incision check in 1-2 weeks. You will also need a 6 week post- follow up appointment. Test results from this visit will be discussed in further detail at your follow- up appointment, if applicable. Please Follow Up With: Mayr Harman MD When: 2 week incision check telehealth and 6 week follow up Primary Care Physician: Care Physician,No Primary [Primary Care Provider] -
--- NOTE | 2019-10-06 08:07 | PCM.PN.OB ---
Patient Problems: Active and Suspected Problems (Last Reviewed 10/18/18 @ 10:18 by Imelda Small) 37 weeks gestation of (Acute) Marginal placenta previa (Acute) Subjective: Feeling a little cramping, but not too bad. Reports +BM x4. Denies heavy bleeding or any concerns. Objective: VSS. Dressing CDI. Fundus is firm, midline, u/2. Lochia rubra light. - Physical Exam Vitals/I&O's: Vital Signs Temp Pulse Resp BP Pulse Ox 97.1 F L 70 16 122/77 H 99 10/06/19 07:40 10/06/19 07:40 10/06/19 07:40 10/06/19 07:40 10/05/19 00:30 Oxygen Delivery Method Room Air Weight: 73.6 kg Body Mass Index (BMI) 26.2 Intake and Output for Last 24 Hours 10/04/19 10/05/19 10/06/19 23:59 23:59 23:59 Intake Total 5847.23 / 5847.23 1868.33 / 1868.33 Output Total 1150 / 1150 1000 / 1000 Balance 4697.23 / 4697.23 868.33 / 868.33 General: Alert, Oriented x3, Cooperative HEENT: Atraumatic, PERRLA, EOMI, Normocephalic Neck: Supple, No JVD, Negative Carotid Bruits Lungs: Clear to auscultation, Normal air movement Cardiovascular: Regular rate, No murmurs Abdomen: Bowel Sounds Present, Soft, Non Tender, Passing Flatus, - - Incision CDI Extremities: No edema, Capillary Refill Less than 3 Seconds Skin: No rashes, No breakdown Musculoskeletal: No Tenderness to Palpation of Joints or Extremities Neurological: Cranial nerves II-XII grossly intact Psych/Mental Status: Normal Affect, Appropriate Current Medications Acetaminophen (Tylenol) 1,000 mg PO Q8H PRN PRN Reason: Pain Score 1-3/10 Last Admin: 10/06/19 05:13 Dose: 1,000 mg Documented by: Bisacodyl (Dulcolax) 10 mg RECTAL UD PRN PRN Reason: If no BM Hydrocortisone (Hytone) 1 applic TOPICAL TID PRN PRN; Protocol PRN Reason: Discomfort Naloxone HCl 4 mg/ Dextrose 504 mls @ 0 mls/hr IV .Q0M PRN; Protocol PRN Reason: Respiratory depression Naloxone HCl 4 mg/ Dextrose 504 mls @ 0 mls/hr IV .Q0M PRN; Protocol PRN Reason: To maintain Resp. rate >10 Ibuprofen (Motrin) 600 mg PO Q6H PRN PRN PRN Reason: Pain Score 1-3/10 Last Admin: 10/06/19 08:01 Dose: 600 mg Documented by: Ketorolac Tromethamine (Toradol (Bkc)) 30 mg IV Q6H CARMENCITA Stop: 10/06/19 15:01 Last Admin: 10/06/19 05:33 Dose: Not Given Documented by: Methylergonovine Maleate (Methergine) 0.2 mg IM X1 PRN PRN Reason: Uterine Atony Naloxone HCl (Narcan) 0.02 mg IV Q1M PRN PRN Reason: RR <10 and pt unresponsive Ondansetron HCl (Zofran) 4 mg IV Q4H PRN PRN PRN Reason: Nausea Last Admin: 10/04/19 12:32 Dose: 4 mg Documented by: Oxycodone HCl (Oxyir) 5 - 10 mg PO Q4H PRN PRN PRN Reason: Pain Score 4-10/10 Multivit/Folic Acid/Iron (Prenatabs Fa) 1 tablet PO DAILY@1200 CARMENCITA Last Admin: 10/05/19 12:11 Dose: 1 tablet Documented by: Prochlorperazine Edisylate (Compazine Iv) 10 mg IV Q6H PRN PRN PRN Reason: NAUSEA Last Admin: 10/04/19 14:24 Dose: 10 mg Documented by: Senna/Docusate Sodium (Senokot-S, Hillary-Colace) 0 tablet PO DAILY PRN PRN Reason: Constipation Simethicone (Mylicon) 80 mg PO PCHS PRN PRN Reason: Indigestion/stomach pain Sodium Chloride () 5 - 15 ml IV UD PRN PRN Reason: SALINE FLUSH Last Admin: 10/05/19 20:53 Dose: 10 ml Documented by: Medical Necessity - Tobacco Use Smoking Status: Never smoker Assessment/Plan All Active Problems (Last Reviewed 10/18/18 @ 10:18 by Imelda Small) 37 weeks gestation of (Acute) Marginal placenta previa (Acute) Coccyx contusion (Acute) History of pre-eclampsia (Acute) A: POD #2 Section Pain well controlled with Motrin and Tylenol Incision CDI Normal involution and rubra Dyad Stable P: Discharge home today PRN Percocet ordered with Rx for 10tabs as needed To remove dressing in 5 days Warning signs of infection reviewed Will have telehealth 2 week incision check and will call for 6 week PP visit
== END 2019-10-06 10:30 | disposition home or self-care (01) | DRG 788 ==
PROVIDERS: Admitting Provider Obstetrics & Gynecology; Referring Provider Obstetrics & Gynecology; Visit Provider Obstetrics & Gynecology
PROC: 10D00Z1 Extraction of Products of Conception, Low, Open Approach (ICD-10-PCS; CPT 59514; principal; 2019-10-04 11:45)
DX: O44.23 Partial placenta previa NOS or without hemorrhage, third trimester (principal); Z98.1 Arthrodesis status; Z79.82 Long term (current) use of aspirin; Z3A.37 37 weeks gestation of pregnancy; Z37.0 Single live birth
CPT/HCPCS: 85025; 85027; 86850; 86900; 86901; 99218; J7120; A4216; G0378; J2405

== ENCOUNTER → 2019-10-12 | Outpatient (CLI) | payer OTHER, BC, SELFPAY ==
[2019-10-04 09:48] VITALS: BMI 26.2
[2019-10-12 18:10] LABS: Hematocrit 34.9 % (37-47); Hemoglobin 11.7 g/dL (12.0-15.0); Mean Corp Hgb Conc 33.5 g/dL (32-36); Mean Corpuscular Hgb 32.1 pg (27.0-32.0); Mean Corpuscular Volume 95.6 fL (81-99); Mean Platelet Vol. 9.6 fl (6.2-12.0); Platelet Count 317 K/mm3 (150-450); RBC Distribution Width CV 13.2 % (11.6-14.6); RBC Distribution Width SD 46.7 fl (35.1-43.9); Red Blood Count 3.65 M/mm3 (4.2-5.4); White Blood Count 7.2 K/mm3 (4.4-11.0)
[2019-10-12 18:21] LABS: ALB/GLOB Ratio 0.8 RATIO (0.9-2.4); AST(SGOT) 13 U/L (15-37); Alanine Aminotransfer ALT/SGPT 25 U/L (13-56); Albumin, Serum 3.2 g/dL (3.2-5.0); Alkaline Phosphatase 88 U/L (45-117); Anion Gap 6 (5-15); BUN 12 mg/dL (7-18); BUN/Creat Ratio 14.7 RATIO (10-20); Calcium,Total 8.6 mg/dL (8.5-10.1); Chloride 104 mmol/L (98-107); Creatinine, Serum 0.82 mg/dL (0.55-1.02); EST Glomerular Filtration Rate 88 mL/min (>60); Est Glom Filt Rate - Afr Amer 106 mL/min (>60); Glucose 79 mg/dL (74-106); Protein, Total 7.2 g/dL (6.4-8.2); Sodium Level 137 mmol/L (136-145); Uric Acid 4.4 mg/dL (2.6-6.0)
== END | disposition home or self-care (01) ==
PROVIDERS: Referring Provider Obstetrics & Gynecology; Visit Provider Obstetrics & Gynecology
DX: O16.5 Unspecified maternal hypertension, complicating the puerperium (principal)
CPT/HCPCS: 80053; 84550; 85027

== ENCOUNTER → 2019-11-11 16:40 | Outpatient (CLI) | payer OTHER, BC, SELFPAY ==
[2019-10-04 09:48] VITALS: BMI 26.2
[2019-11-11 18:59] LABS: Chlamydia Trachomatis by PCR Negative (Negative); Neisserai gonorrhoeae by PCR Negative (Negative); Probe Check PASS; Sample Adequacy Control PASS; Specimen Processing Control PASS
== END ==
PROVIDERS: Referring Provider Obstetrics & Gynecology; Visit Provider Obstetrics & Gynecology
DX: Z11.3 Encounter for screening for infections with a predominantly sexual mode of transmission (principal); Z30.431 Encounter for routine checking of intrauterine contraceptive device
CPT/HCPCS: 87491; 87591

== ENCOUNTER → 2021-02-11 09:26 | Outpatient (CLI) | payer OTHER, BC, SELFPAY ==
--- NOTE | 2021-02-11 09:33 | BI_ITS ---
MAMMOGRAPHY - BILATERAL DIAGNOSTIC REASON FOR EXAM: Female, 31 years old. Left axillary lump. PERTINENT HISTORY: Mother with breast cancer. Aunt with breast cancer. TECHNIQUE: Digital bilateral breast arlette (3D mammographic acquisition) in the CC and MLO projections. 2-D mediolateral oblique (MLO) and craniocaudad (CC) views of both breasts were obtained. CAD: Full Field Digital Mammography with Computer Added Detection was performed. COMPARISON: None. Baseline examination. FINDINGS: Breast Composition: The breasts are extremely dense, which lowers the sensitivity of mammography. There are no dominant masses or suspicious calcifications. No other significant abnormalities are identified. There has been no significant change since the prior study. BI/DIAG MAMM W/CAD, BILAT IMPRESSION: Stable bilateral diagnostic mammogram. One year follow-up recommended. (A) ASSESSMENT CATEGORY: BIRADS Category 1: Negative. A letter regarding these results will be sent to the patient by the facility within 30 days. Approximately 10% of breast cancers are not detected by mammography. A normal mammogram should not delay biopsy of a clinically suspicious abnormality. Electronically Signed: Jc Gaytan MD at 10:28 EDT , Service support ,
--- NOTE | 2021-02-11 09:33 | US_ITS ---
STUDY: ULTRASOUND BREAST - LEFT REASON FOR EXAM: Female, 31 years old. Left axillary palpable lump. TECHNIQUE: Axial and longitudinal images of the LEFT breast were performed with a high resolution ultrasound transducer. # OF IMAGES: 38 COMPARISON: Comparison is made with prior mammogram done earlier in the day. FINDINGS: LEFT Breast: There are 3 small benign appearing lymph nodes in the left axilla. The largest measures 1.8 cm x 1 cm x 0.4 cm. US/Breast Limited Unilateral IMPRESSION: There are 3 small benign-appearing lymph nodes in the left axilla. ASSESSMENT CATEGORY: BIRADS Category 2: Benign. A letter regarding these results will be sent to the patient by the facility within 30 days. Electronically Signed: Jc Gaytan MD at 11:29 EDT , Service support ,
== END ==
PROVIDERS: Referring Provider Obstetrics & Gynecology; Visit Provider Obstetrics & Gynecology
DX: N63.20 Unspecified lump in the left breast, unspecified quadrant (principal)
CPT/HCPCS: 76642; 77062; 77066; G0279

== ENCOUNTER → 2021-05-07 15:24 | Outpatient (CLI) | payer OTHER, BC, SELFPAY | PROVIDERS: Referring Provider Nurse Practitioner Women's Health; Visit Provider Nurse Practitioner Women's Health | DX: N89.8 Other specified noninflammatory disorders of vagina (principal) | CPT/HCPCS: 87070; 87205; 87255 ==

== ENCOUNTER → 2021-05-21 12:47 | Outpatient (CLI) | payer OTHER, BC, SELFPAY ==
--- NOTE | 2021-05-21 12:48 | US_ITS ---
STUDY: ULTRASOUND OF THE FEMALE PELVIS - COMPLETE REASON FOR EXAM: Female, 31 years old. Right lower quadrant pain. LMP: 05/16/2021. TECHNIQUE: Transabdominal and Transvaginal TECHNICAL QUALITY: Adequate. COMPARISON: None. FINDINGS: The uterus is anteverted and is in a midline position. The uterus measures 9.1 cm x 5.1 cm x 2.8 cm. Normal uterine cervix. The endometrium measures 2 mm in thickness, and is fluid distended. There is no demonstrated endometrial mass. There is no demonstrated myometrial mass. I.U.D. - The patient does not have an I.U.D. The right ovary is visualized. The right ovary measures 3.3 cm x 2.4 cm x 1.6 cm. There is a 1 cm x 1.8 cm x 0.7 cm right ovarian follicle. There is no visualized right adnexal mass or complex lesion. There is normal arterial and normal venous vascularity. The left ovary is visualized. The left ovary measures 3.1 cm x 2.5 cm x 1.5 cm. There is no left ovarian cyst or ovarian mass. There is a 1.3 cm x 1.2 cm x 1.2 cm dominant follicle. There is normal arterial and normal venous vascularity. There is no fluid in the cul-de-sac. The pre void volume of the bladder was 450 ml. US/Transvaginal Non- IMPRESSION: Follicles are seen in both ovaries. Electronically Signed: Jc Gaytan MD at 14:03 EST , Service support ,
--- NOTE | 2021-05-21 12:48 | US_ITS ---
STUDY: ULTRASOUND OF THE FEMALE PELVIS - COMPLETE REASON FOR EXAM: Female, 31 years old. Right lower quadrant pain. LMP: 05/16/2021. TECHNIQUE: Transabdominal and Transvaginal TECHNICAL QUALITY: Adequate. COMPARISON: None. FINDINGS: The uterus is anteverted and is in a midline position. The uterus measures 9.1 cm x 5.1 cm x 2.8 cm. Normal uterine cervix. The endometrium measures 2 mm in thickness, and is fluid distended. There is no demonstrated endometrial mass. There is no demonstrated myometrial mass. I.U.D. - The patient does not have an I.U.D. The right ovary is visualized. The right ovary measures 3.3 cm x 2.4 cm x 1.6 cm. There is a 1 cm x 1.8 cm x 0.7 cm right ovarian follicle. There is no visualized right adnexal mass or complex lesion. There is normal arterial and normal venous vascularity. The left ovary is visualized. The left ovary measures 3.1 cm x 2.5 cm x 1.5 cm. There is no left ovarian cyst or ovarian mass. There is a 1.3 cm x 1.2 cm x 1.2 cm dominant follicle. There is normal arterial and normal venous vascularity. There is no fluid in the cul-de-sac. The pre void volume of the bladder was 450 ml. US/Pelvic (Non ) IMPRESSION: Follicles are seen in both ovaries. Electronically Signed: Jc Gaytan MD at 14:03 EST , Service support ,
== END ==
PROVIDERS: Referring Provider Nurse Practitioner Women's Health; Visit Provider Nurse Practitioner Women's Health
DX: R10.2 Pelvic and perineal pain (principal)
CPT/HCPCS: 76830; 76856; 93976

== ENCOUNTER 2021-07-17 09:12 | Outpatient (CLI) | payer OTHER, BC, SELFPAY ==
[2021-07-17 11:18] LABS: Amphetamine Urine VISTA NEGATIVE (<1000 ng/mL); Barbiturate Urine VISTA NEGATIVE (< 200 ng/mL); Benzodiazepine Urine VISTA NEGATIVE (< 200 ng/mL); Cocaine Urine VISTA NEGATIVE (< 300 ng/mL); Ecstacy Urine VISTA NEGATIVE (< 500 ng/mL); Methadone Urine VISTA NEGATIVE (< 300 ng/mL); PCP Urine VISTA NEGATIVE (< 25 ng/mL); THC Urine VISTA NEGATIVE (< 50 ng/mL); Vista UDS pH Range 7
[2021-07-19 08:09] LABS: Chlamydia By Nucleic Acid AMP Negative (Negative)
[2021-07-19 17:53] LABS: Gonococcus By Nucleic Acid AMP Negative (Negative)
[2021-07-22 21:45] LABS: HPV APTIMA, High Risk Negative (Negative)
== END 2021-07-17 23:59 | disposition short-term general hospital (02) ==
LOC: LABSPEC 07-18 09:13
PROVIDERS: Visit Provider Obstetrics & Gynecology
DX: O09.90 Supervision of high risk pregnancy, unspecified, unspecified trimester (principal); Z3A.00 Weeks of gestation of pregnancy not specified
CPT/HCPCS: 80307; 87086; 87088; 87491; 87591; 87624; 88175; G0145

== ENCOUNTER 2021-07-24 09:27 | Outpatient (CLI) | payer OTHER, BC, SELFPAY ==
[2021-07-24 10:05] LABS: Absolute Lymphocyte Count 1.53 X10^3/uL (0.83-4.51); Absolute Neutrophil Count 2.8 X10^3/uL (2.0-7.7); Basophil# 0.02 X10^3/uL; Basophil% 0.4 % (0-1); Eosinophil# 0.17 X10^3/uL; Eosinophils% 3.5 % (0-5); Hematocrit 36.3 % (37-47); Lymphocyte # 1.53 X10^3/ul (0.83-4.51); Lymphocyte % 31.2 % (19-41); Mean Corp Hgb Conc 35.8 g/dL (32-36); Mean Corpuscular Hgb 31.6 pg (27.0-32.0); Mean Corpuscular Volume 88.1 fL (81-99); Mean Platelet Vol. 9.5 fl (6.2-12.0); Monocyte# 0.38 X10^3/uL; Monocyte% 7.8 % (0-10); NRBC Flagged by Analyzer 0 % (0-5); Neutrophil # 2.78 X10^3/uL (2.7-7.7); Neutrophil % 56.7 % (47-70); Platelet Count 188 K/mm3 (150-450); RBC Distribution Width CV 13.8 % (11.6-14.6); Red Blood Count 4.12 M/mm3 (4.2-5.4); White Blood Count 4.9 K/mm3 (4.4-11.0)
[2021-07-24 10:50] LABS: NATERA MAILED SPECIMEN
[2021-07-24 11:16] LABS: HIV - WCH Non-Reactive (Nonreactive); Hepatitis B Surface Antigen Non-Reactive (Nonreactive); Hepatitis C Antibody Non-Reactive (Nonreactive); Rubella IgG Reactive (Nonreactive); Syphilis Antibodies Non-reactive
== END 2021-07-24 23:59 | disposition short-term general hospital (02) ==
LOC: PAVLAB 09:29
PROVIDERS: Referring Provider Obstetrics & Gynecology; Visit Provider Obstetrics & Gynecology
DX: Z34.81 Encounter for supervision of other normal pregnancy, first trimester (principal)
CPT/HCPCS: 36415; 85025; 86703; 86762; 86780; 86803; 86850; 86900; 86901; 87340

== ENCOUNTER → 2021-11-12 | Outpatient (CLI) | payer OTHER, BC, SELFPAY ==
[2021-11-12 10:21] LABS: Absolute Lymphocyte Count 1.79 X10^3/uL (0.83-4.51); Absolute Neutrophil Count 6.5 X10^3/uL (2.0-7.7); Basophil# 0.03 X10^3/uL; Basophil% 0.3 % (0-1); Eosinophil# 0.11 X10^3/uL; Eosinophils% 1.2 % (0-5); Hematocrit 33.9 % (37-47); Hemoglobin 11.5 g/dL (12.0-15.0); Lymphocyte # 1.79 X10^3/ul (0.83-4.51); Lymphocyte % 19.6 % (19-41); Mean Corp Hgb Conc 33.9 g/dL (32-36); Mean Corpuscular Hgb 31.4 pg (27.0-32.0); Mean Corpuscular Volume 92.6 fL (81-99); Mean Platelet Vol. 10.3 fl (6.2-12.0); Monocyte% 6.6 % (0-10); NRBC Flagged by Analyzer 0 % (0-5); Neutrophil # 6.53 X10^3/uL (2.7-7.7); Neutrophil % 71.5 % (47-70); Platelet Count 183 K/mm3 (150-450); RBC Distribution Width CV 13.6 % (11.6-14.6); RBC Distribution Width SD 46.2 fl (35.1-43.9); Red Blood Count 3.66 M/mm3 (4.2-5.4); White Blood Count 9.1 K/mm3 (4.4-11.0)
[2021-11-12 10:32] LABS: Glucose Challenge Gest 1H 50g 90 mg/dL (70-140)
== END | disposition home or self-care (01) ==
LOC: LAB 09:33
PROVIDERS: Obstetrics & Gynecology; PCP Family Medicine; Referring Provider Obstetrics & Gynecology; Visit Provider Obstetrics & Gynecology
DX: O09.90 Supervision of high risk pregnancy, unspecified, unspecified trimester (principal); Z3A.00 Weeks of gestation of pregnancy not specified
CPT/HCPCS: 36415; 82950; 85025

== ENCOUNTER → 2022-01-10 | Outpatient (CLI) | payer OTHER, BC, SELFPAY ==
--- NOTE | 2022-01-10 12:27 | US_ITS ---
EXAM: US , LIMITED CLINICAL INDICATION: Screening, growth, uterine size discrepancy. TECHNIQUE: Real-time limited ultrasound of the maternal uterus with image documentation. This report was created using [facility] report generation technology. COMPARISON: None. FINDINGS: FETUS: Single intrauterine gestation. GESTATIONAL AGE: Composite gestational age is 34 weeks and 6 days. EFW: Estimated weight is 2569 g which corresponds to the 43rd percentile. BPD: 35 weeks. HC: 35 weeks 6 days. AC: 35 weeks 3 days. FL: 33 weeks 3 days. HEART RATE: heart rate is 148 bpm. PLACENTA: The placenta is posterior without evidence of placenta previa. AMNIOTIC FLUID: Amniotic fluid deepest vertical pocket is 7.9 cm. Amniotic fluid index is 11.8 cm. CERVIX: Cervical length is 3 cm. US/OB Limited With Biometrics IMPRESSION: 1. Single live intrauterine at 34 weeks and 6 days. No abnormalities identified. 2. No uterine mass identified. Electronically Signed: Patrice Gaming MD at 23:51 EDT ,
== END | disposition home or self-care (01) ==
LOC: US 12:26
PROVIDERS: Referring Provider Obstetrics & Gynecology; Visit Provider Obstetrics & Gynecology
DX: O26.849 Uterine size-date discrepancy, unspecified trimester (principal); Z3A.34 34 weeks gestation of pregnancy
CPT/HCPCS: 76816

== ENCOUNTER → 2022-01-17 | Outpatient (CLI) | payer OTHER, BC, SELFPAY | END | disposition home or self-care (01) | LOC: LABSPEC 11:57 | PROVIDERS: Visit Provider Obstetrics & Gynecology | DX: Z34.90 Encounter for supervision of normal pregnancy, unspecified, unspecified trimester (principal) | CPT/HCPCS: 87077; 87081; 87186 ==

== ENCOUNTER 2022-01-22 13:50 | Outpatient (CLI) | payer OTHER, BC, SELFPAY ==
[2022-01-22 14:01] VITALS: BMI 25.9
[2022-01-22 14:10] VITALS: TEMP 37.2; O2SAT 98
[2022-01-22 14:11] VITALS: BP 125/77; PULSE 101
--- NOTE | 2022-01-25 09:32 | OB.TRI.HP_ITS ---
HPI - General General Date of Admission: 01/22/22 HPI Narrative MIRZA MORENO, is a 31y/o @ 36 weeks 6 days who presents to L& d with hip pain and some mild contractions. She denies lof, vaginal bleeding ,or dec fm. Maternal Data Information ANTONIO Calculator Estimated Delivery Date Method Current WG Current Estimate 02/13/22 Ultrasound #1 37w 2d Other Estimates 02/19/22 LMP (Uncertain) 36w 3d PFSH PFSH Medical History (Updated 01/25/22 @ 09:[address] Komal Canales DO) Chronic hypertension Cystocele Oligohydramnios Placental abnormality Home Medications prenat.vits,srini,auf-[id number] 1 tab PO DAILY 07/09/21 [History Last Taken 01/23/22 21:00] ibuprofen 600 mg tablet 600 mg PO Q6H PRN pain 7 days #30 tabs 01/24/22 [Rx Last Taken Unknown] oxycodone-acetaminophen 5 mg-325 mg tablet (Percocet) 1 tab PO Q4H PRN pain 7 days #30 tabs 01/24/22 [Rx Last Taken Unknown] Allergy/AdvReac Type Severity Reaction Status Date / Time ciprofloxacin [From Cipro] AdvReac Unknown Unknown Verified 01/24/22 10:50 Family History Mother Breast cancer Thyroid disorder Father High cholesterol Hypertension Surgical History (Updated 01/25/22 @ 08:[address] 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 Date Name GA/Weeks Outcome Route Bth Weight Infant Gen Labor Lgth Anesthesia Del Locatn Provider FOB 09/06/18 Lyle 36 live - full term 6'6 Male 7 hrs epidural [facility] Dr Brandi Vicente 10/04/19 Alcides 37 live - full term 6# 3 Male [facility] Elisa Oleary Jules Delivery Date: 10/04/19 Last Updated by: Jodi Caldwell TRANSMISSION MECHANIC, TRANSMISSION MECHANIC-C C section for placenta previa Visit Details Expected Delivery Route/Plan RLTCS Labor Preferences- CB/BF classes: no labor support person: Jules labor intervention preferences: prefers repeat section Plans Covid status: fully vaccinated Flu vaccine: yes Tdap vaccine:given Rhogam: na LARC form signed: yes movement and labor precautions reviewed. Problem list reviewed and updated with the most current plan of care details and appropriate orders placed. Relevant counseling for the gestational age provided. Continue routine care and follow up unless otherwise noted in visit notes/problem list details OB Flowsheet Initial Weight: Not Recorded Date -?-?-?-?-?-?-?-?-?-?-?-?- EGA Weight BP Urine Prot -?-?-?-?-?-?-?-?-?-?-?-?- Glucose FHR FuHt Pres Dilation -?-?-?-?-?-?-?-?-?-?-?-?- Effaced St Visit Note 07/17/21 -?-?-?-?-?-?-?-?-?-?-?-?- 9w 6d 130 lb 6 oz 110/76 -?-?-?-?-?-?-?-?-?-?-?-?- 168 -?-?-?-?-?-?-?-?-?-?-?-?- JV- CRL measurin g 9 weeks 6 days, off from lmp. ANTONIO 02/11/22 08/16/21 -?-?-?-?-?-?-?-?-?-?-?-?- 14w 1d 136 lb 6 oz 110/72 Nega tive -?-?-?-?-?-?-?-?-?-?-?-?- Negative 155 -?-?-?-?-?-?-?-?-?-?-?-?- JV- no complaint s today. bedside ultrasound performed for heart tones only. 09/03/21 -?-?-?-?-?-?-?-?-?-?-?-?- 16w 5d 137 lb 2 oz 110/60 Nega tive -?-?-?-?-?-?-?-?-?-?-?-?- Negative 151 -?-?-?-?-?-?-?-?-?-?-?-?- -NO VB, LOF. S tarting to feel flutters. MFM US 09/2610/01/21 -?-?-?-?-?-?-?-?-?-?-?-?- 20w 5d 142 lb 112/60 Negative -?-?-?-?-?-?-?-?-?-?-?-?- Negative 148 -?-?-?-?-?-?-?-?-?-?-?-?- -No VB, LOF. G ood FM. Has nasal congestion, med list given 10/30/21 -?-?-?-?-?-?-?-?-?-?-?-?- 24w 6d 143 lb 6 oz 100/70 Nega tive -?-?-?-?-?-?-?-?-?-?-?-?- Negative 125 24 -?-?-?-?-?-?-?-?-?-?-?-?- JV- no lof, vagi nal bleeding, or cramping today. she had some cramping over the weekend that is resolved. gct ordered. 11/12/21 -?-?-?-?-?-?-?-?-?-?-?-?- 26w 5d 148 lb 8 oz 118/66 Nega tive -?-?-?-?-?-?-?-?-?-?-?-?- Negative 147 26 -?-?-?-?-?-?-?-?-?-?-?-?- MH-No Vb, LOF. G ood FM. 28 wk labs, larc. 11/29/21 -?-?-?-?-?-?-?-?-?-?-?-?- 29w 1d 150 lb 8 oz 112/60 Nega tive -?-?-?-?-?-?-?-?-?-?-?-?- Negative 152 29 -?-?-?-?-?-?-?-?-?-?-?-?- JV- normal 28 we ek labs. tdap today. no complaints. 12/13/21 -?-?-?-?-?-?-?-?-?-?-?-?- 31w 1d 153 lb 6 oz 104/62 Nega tive -?-?-?-?-?-?-?-?-?-?-?-?- Negative 135 30 -?-?-?-?-?-?-?-?-?-?-?-?- SM- no vb lof go od fm no regualr ctx 12/27/21 -?-?-?-?-?-?-?-?-?-?-?-?- 33w 1d 156 lb 108/62 Negative -?-?-?-?-?-?-?-?-?-?-?-?- Negative 135 32 -?-?-?-?-?-?-?-?-?-?-?-?- SM- no vb lof go od fm no regular ctx 01/10/22 -?-?-?-?-?-?-?-?-?-?-?-?- 35w 1d 157 lb 118/80 Negative -?-?-?-?-?-?-?-?-?-?-?-?- Negative 135 33 Cephalic 1 -?-?-?-?-?-?-?-?-?-?-?-?- 40 -2 SM- no vb lof good fm irregular ctx. check growth us for low FH 01/17/22 -?-?-?-?-?-?-?-?-?-?-?-?- 36w 1d 159 lb 2 oz 110/68 Nega tive -?-?-?-?-?-?-?-?-?-?-?-?- Negative 130 35 Cephalic 1 -?-?-?-?-?-?-?-?-?-?-?-?- SM- no vb lof go od fm no reuglar ctx gbs done [facility] 01/24/22 -?-?-?-?-?-?-?--?-?-?-?-?- 37w 1d 159 lb 8 oz 100/60 Nega tive -?-?-?-?-?-?-?-?-?-?-?-?- Negative 135 33 Cephalic -?-?-?-?-?-?-?-?-?-?-?-?- JV- oligo on sca n (3cm) sending down to L&D for delivery ria last ate at 10 am. ROS Constitutional Constitutional: Reports systems reviewed and no addt'l complaints, except as documented Gastrointestinal Gastrointestinal: Denies bloating, constipation, cramping, diarrhea, nausea or vomiting Genitourinary Genitourinary: Reports other Details: Denies vaginal odor, vaginal bleeding, or vaginal discharge ; Denies difficulty urinating or flank pain Physical Exam HEENT normocephalic Resp normal respiratory effort and normal air movement no CVA tenderness Extremity normal to inspection General Extremity: edema bilateral (trace ) NST FHR Rate Baby A Baseline: 140 Variability:: Moderate Accelerations:: 15 x 15 Decelerations:: None NST Reactive:: Yes FHR Category:: Category I Assessment & Plan (1) Hip pain: PLAN: IV fluids and Flexeril gave little relief. pt is interested in PT. will set up outpatient. Charges/Coding Multi Select Codes Visit Charges Office Visit/Consults: 03148 OV L3 Est Urinary/Genital Urinary/Genital CPT Codes: 81416-65 non-stress test Interp
--- NOTE | 2022-01-25 09:32 | OB.TRI.NOTE ---
HPI - General General Date of Admission: 01/22/22 HPI Narrative MIRAZ MORENO, is a 31y/o @ 36 weeks 6 days who presents to L& d with hip pain and some mild contractions. She denies lof, vaginal bleeding ,or dec fm. Maternal Data Information ANTONIO Calculator Estimated Delivery Date Method Current WG Current Estimate 02/13/22 Ultrasound #1 37w 2d Other Estimates 02/19/22 LMP (Uncertain) 36w 3d PFSH PFSH Medical History (Updated 01/25/22 @ 09:[address] Komal Canales DO) Chronic hypertension Cystocele Oligohydramnios Placental abnormality Home Medications prenat.vits,srini,nvd-[id number]-[id number] 1 tab PO DAILY 07/09/21 [History Last Taken 01/23/22 21:00] ibuprofen 600 mg tablet 600 mg PO Q6H PRN pain 7 days #30 tabs 01/24/22 [Rx Last Taken Unknown] oxycodone-acetaminophen 5 mg-325 mg tablet (Percocet) 1 tab PO Q4H PRN pain 7 days #30 tabs 01/24/22 [Rx Last Taken Unknown] Allergy/AdvReac Type Severity Reaction Status Date / Time ciprofloxacin [From Cipro] AdvReac Unknown Unknown Verified 01/24/22 10:50 Family History Mother Breast cancer Thyroid disorder Father High cholesterol Hypertension Surgical History (Updated 01/25/22 @ 08:[address] 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 Date Name GA/Weeks Outcome Route Bth Weight Infant Gen Labor Lgth Anesthesia Del Locatn Provider FOB 09/06/18 Lyle 36 live - full term 6'6 Male 7 hrs epidural [facility] Dr Brandi Wilkins Jules 10/04/19 Alcides 37 live - full term 6# 3 Male [facility] Elisa Oleary Jules Delivery Date: 10/04/19 Last Updated by: Jodi Caldwell SKIFF OPERATOR, SKIFF OPERATOR-C C section for placenta previa Visit Details Expected Delivery Route/Plan RLTCS Labor Preferences- CB/BF classes: no labor support person: Jules labor intervention preferences: prefers repeat section Plans Covid status: fully vaccinated Flu vaccine: yes Tdap vaccine:given Rhogam: na LARC form signed: yes movement and labor precautions reviewed. Problem list reviewed and updated with the most current plan of care details and appropriate orders placed. Relevant counseling for the gestational age provided. Continue routine care and follow up unless otherwise noted in visit notes/problem list details OB Flowsheet Initial Weight: Not Recorded Date <del>?</del> EGA Weight BP Urine Prot <del>?</del> Glucose FHR FuHt Pres Dilation <del>?</del> Effaced St Visit Note 07/17/21 <del>?</del> 9w 6d 130 lb 6 oz 110/76 <del>?</del> 168 <del>?</del> JV- CRL measuring 9 weeks 6 days, off from lmp. ANTONIO 02/11/22 08/16/21 <del>?</del> 14w 1d 136 lb 6 oz 110/72 Negative <del>?</del> Negative 155 <del>?</del> JV- no complaints today. bedside ultrasound performed for heart tones only. 09/03/21 <del>?</del> 16w 5d 137 lb 2 oz 110/60 Negative <del>?</del> Negative 151 <del>?</del> MH-NO VB, LOF. Starting to feel flutters. MFM US 09/2610/01/21 <del>?</del> 20w 5d 142 lb 112/60 Negative <del>?</del> Negative 148 <del>?</del> MH-No VB, LOF. Good FM. Has nasal congestion, med list given 10/30/21 <del>?</del> 24w 6d 143 lb 6 oz 100/70 Negative <del>?</del> Negative 125 24 <del>?</del> JV- no lof, vaginal bleeding, or cramping today. she had some cramping over the weekend that is resolved. gct ordered. 11/12/21 <del>?</del> 26w 5d 148 lb 8 oz 118/66 Negative <del>?</del> Negative 147 26 <del>?</del> MH-No Vb, LOF. Good FM. 28 wk labs, larc. 11/29/21 <del>?</del> 29w 1d 150 lb 8 oz 112/60 Negative <del>?</del> Negative 152 29 <del>?</del> JV- normal 28 week labs. tdap today. no complaints. 12/13/21 <del>?</del> 31w 1d 153 lb 6 oz 104/62 Negative <del>?</del> Negative 135 30 <del>?</del> SM- no vb lof good fm no regualr ctx 12/27/21 <del>?</del> 33w 1d 156 lb 108/62 Negative <del>?</del> Negative 135 32 <del>?</del> SM- no vb lof good fm no regular ctx 01/10/22 <del>?</del> 35w 1d 157 lb 118/80 Negative <del>?</del> Negative 135 33 Cephalic 1 <del>?</del> 40 -2 SM- no vb lof good fm irregular ctx. check growth us for low FH 01/17/22 <del>?</del> 36w 1d 159 lb 2 oz 110/68 Negative <del>?</del> Negative 130 35 Cephalic 1 <del>?</del> SM- no vb lof good fm no reuglar ctx gbs done nl 01/24/22 <del>?</del> 37w 1d 159 lb 8 oz 100/60 Negative <del>?</del> Negative 135 33 Cephalic <del>?</del> JV- oligo on scan (3cm) sending down to L&D for delivery tonight last ate at 10 am. ROS Constitutional Constitutional: Reports systems reviewed and no addt'l complaints, except as documented Gastrointestinal Gastrointestinal: Denies bloating, constipation, cramping, diarrhea, nausea or vomiting Genitourinary Genitourinary: Reports other Details: Denies vaginal odor, vaginal bleeding, or vaginal discharge ; Denies difficulty urinating or flank pain Physical Exam HEENT normocephalic Resp normal respiratory effort and normal air movement no CVA tenderness Extremity normal to inspection General Extremity: edema bilateral (trace ) NST FHR Rate Baby A Baseline: 140 Variability:: Moderate Accelerations:: 15 x 15 Decelerations:: None NST Reactive:: Yes FHR Category:: Category I Assessment & Plan (1) Hip pain: PLAN: IV fluids and Flexeril gave little relief. pt is interested in PT. will set up outpatient. Charges/Coding Multi Select Codes Visit Charges Office Visit/Consults: 88334 OV L3 Est Urinary/Genital Urinary/Genital CPT Codes: 42649-47 non-stress test Interp
== END 2022-01-22 15:16 | disposition home or self-care (01) ==
LOC: WPOUT 13:57 → WP 13:57
PROVIDERS: Visit Provider Obstetrics & Gynecology
DX: O26.20 Pregnancy care for patient with recurrent pregnancy loss, unspecified trimester (principal); Z3A.00 Weeks of gestation of pregnancy not specified; O34.219 Maternal care for unspecified type scar from previous cesarean delivery
CPT/HCPCS: 59025; 59050; 99218; G0378

== ENCOUNTER 2022-01-24 11:45 | Inpatient (IN) | payer OTHER, BC, SELFPAY ==
[2022-01-24] VITALS (18 sets, daily range): BP systolic 100–126; BP diastolic 54–77; PULSE 67–82; RESP 16; TEMP 36.2–36.7; O2SAT 98–100; BMI 25.7
--- NOTE | 2022-01-24 | FALS_PTH ---
PATIENT: MIRZA MORENO LOC: WP U#:[id number] AGE/SX: 31/F ROOM: WP006 RE01/24/[address]: Dr. Komal Canales DO : 1990 BED: 1 DIS: 01/26/2022 SPEC #: [id number] RECD: 01/27/22 08:37 STATUS: SHANTELL MARIE #: [id number] DIVINA: 01/24/22 00:[address]: Komal Canales DEPT: SURGICAL PATHOLOGY RECD BY: Lalo Morris ENTERED: 01/27/22 08:38 SP TYPE: FALL TUBES OTHR DR: No Primary Care Phys Tissues: Fallopian tube Procedures: Surgery Specimen Level II HEADER OPERATION: Tubal ligation PRE-OP DIAGNOSIS: Sterilization TISSUE SUBMITTED: Fallopian tubes MICROSCOPIC DIAGNOSIS Right and left fallopian tubes, bilateral salpingectomies: Complete segments of fallopian tubes with no pathologic change. AM:ernesto 01/28/2022 MICROSCOPIC DESCRIPTION Slides are reviewed. GROSS DESCRIPTION Received in fixative is one container labeled with the patient's name and designated bilateral fallopian tubes, right tube stitch. The specimen consists of bilateral fallopian tubes including fimbrial ends. The right fallopian tube measures 6 cm in length and 0.5 cm in diameter and left fallopian tube measures 5 cm in length and 0.6 cm in diameter. Sections reveal unremarkable cut surfaces. Electroencephalographic Technician sections are submitted in two cassettes as follows: 1 ? right fallopian tube, 2 ? left fallopian tube. / SJ:ernesto 01/27/2022 TC:4 CPT: 81087 x2
[2022-01-24 13:35] LABS: Creatinine, Urine (random) < 13.00 mg/dL (NO RANGE EST.); Protein, Urine (Random) 7.3 mg/dL (<11.9)
[2022-01-24 14:21] LABS: Hematocrit 33.8 % (37-47); Hemoglobin 11.4 g/dL (12.0-15.0); Mean Corp Hgb Conc 33.7 g/dL (32-36); Mean Corpuscular Hgb 30.5 pg (27.0-32.0); Mean Corpuscular Volume 90.4 fL (81-99); Mean Platelet Vol. 11.1 fl (6.2-12.0); Platelet Count 179 K/mm3 (150-450); RBC Distribution Width CV 13.4 % (11.6-14.6); RBC Distribution Width SD 44.1 fl (35.1-43.9); Red Blood Count 3.74 M/mm3 (4.2-5.4)
[2022-01-24 14:35] LABS: AST(SGOT) 13 U/L (15-37); Alanine Aminotransfer ALT/SGPT 18 U/L (13-56); Creatinine, Serum 0.65 mg/dL (0.55-1.02); EST Glomerular Filtration Rate 113 mL/min (>60); Est Glom Filt Rate - Afr Amer 136 mL/min (>60); Uric Acid 5.3 mg/dL (2.6-6.0)
[2022-01-24] MEDS: Lactated Ringers 1,000 ML 999 ML IV (15:05)
[2022-01-24] MEDS: Lactated Ringers 1,000 ML 150 ML IV (16:26)
[2022-01-24] MEDS: Sodium Citrate/Citric Acid 30 ML UDC PO (17:10)
[2022-01-24] MEDS: Cefazolin 2 GM in 0.9% Normal Saline 100 ML IV (17:10)
--- NOTE | 2022-01-24 17:25 | HP.PCM_ITS ---
History and Physical Date of Admission: 01/24/22 R#: [id number] Acct: [id number] Name:MIRZA SEO Rep #: [id number] : 1990 ? ? Provider: Dr. Komal Canales, DO Age/Sex:? 31/F ? ? [place] [facility] [place] Status: Signed Intake Vital Signs ? 08/16/2209:38 01/22/2214:01 01/24/2210:48 01/24/2210:55 Height 5 ft 6 in 5 ft 6 in 5 ft 6 in 5 ft 6 in Weight: ? ? ? 159 lb 8 oz BMI ? ? ? 25.7 BP ? ? ? 100/60 Intake Visit Reasons:?38WK OB Is patient in pain?: Yes (bilateral hips) Allergies ciprofloxacin [From Cipro] Adverse Reaction (Unknown, Verified 01/24/22 10:50) Unknown Medications prenat.vits,srini,pkp-wlzx-bedmy 1 tab PO DAILY 07/09/21 [History Confirmed 01/24/22] valacyclovir 500 mg tablet (Valtrex) 500 mg PO QDAY #30 tabs 01/17/22 [Rx Confirmed 01/24/22] cyclobenzaprine 10 mg tablet 10 mg PO TID PRN muscle spasm #30 tabs 01/22/22 [Rx Confirmed 01/24/22] Last Menstral Period: 04/15/21 Zika: Zika virus screening: Negative : No PFSH PFSH Medical History? Cystocele Surgical History? H/O oral surgery H/O spinal fusion Family History? Mother Breast cancer Thyroid disorderFather High cholesterol Hypertension Social History? adopted:? No household members:? spouse number of children:? 2 current occupational status:? unemployed Smoking Status:? Never smoker alcohol intake:? current alcohol intake frequency: holidays/special occasions only substance use type:? does not use what type of physical activity do you participate in:? running seatbelt use:? always do you feel safe at home:? 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 ? ? 3 ? Elective abortions ? ? ? 0 Hx Para ? ? ? 2 ? Spontaneous abortionsA ? ? ? 0 Hx # Term Pregnancies ? ? ? 2 ? Ectopic pregnancies ? ? ? 0 Hx # Pregnancies ? ? ? 0 ? Multiple births ? ? ? 0 ? # of living children ? ? ? 2 Past Pregnancies Del. Date Name GA/Weeks Outcome Route Bth Weight Gen Labor Lgth Anesthesia Del Locatn Provider FOB 09/06/18 [place] 36 live - full term 6'6 Male 7 hrs epidural [facility] Dr Brandi Wilkins Jules 10/04/19 Alcides 37 live - full term 6# 3 Male ? ? [facility] Elisa Oleary Jules Delivery Date: 10/04/19? Last Updated by: Jodi Caldwell HIRED HAND, HIRED HAND-C ? ? ? C section for placenta previa HPI 38WK OB Details: MIRZA MORENO is a 31 year old who presents for routine OB visit. OB Visit ANTONIO Calculator ? Estimated Delivery Date Method Current WG Current Estimate 02/13/22 Ultrasound #1 37w 1d Other Estimates 02/19/22 LMP (Uncertain) 36w 2d Expected Delivery Route/Plan RLTCS Labor Preferences- CB/BF classes: no labor support person: Jules labor intervention preferences: prefers repeat section Specific Issue/Plans Covid status: fully vaccinated Flu vaccine: yes Tdap vaccine:given Rhogam: na LARC form signed: yes movement and labor precautions reviewed. Problem list reviewed and updated with the most current plan of care details and appropriate orders placed.? Relevant counseling for the gestational age provided. Continue routine care and follow up unless otherwise noted in visit notes/problem list details Initial Weight:?Not Recorded Date -?-?-?-?-?-?-?-?-?-?-?-?- EGA Weight BP Urine Prot -?-?--?-?-?-?-?-?-?-?-?-?- Glucose FHR FuHt Pres Dilation -?-?-?-?-?-?-?-?-?-?-?-?- Effaced St Visit Note 07/17/21-?-?-?-?-?-?-?-?-?-?-?-?- 9w 6d 130 lb 6 oz 110/76 -?-?-?-?-?-?-?-?-?-?-?-?- ? 168 ? ? -?-?-?-?-?-?-?-?-?-?-?-?- ? ? JV- CRL measuring 9 weeks 6 days, off from lmp. ANTONIO 02/11/22 08/16/21-?-?-?-?-?-?-?-?-?-?-?-?- 14w 1d 136 lb 6 oz 110/72 Negative -?-?-?-?-?-?-?-?-?-?-?-?- Negative 155 ? ? -?-?-?-?-?-?-?-?-?-?-?-?- ? ? JV- no complaints today. bedside ultrasound performed for heart tones only. 09/03/21-?-?-?-?-?-?-?-?-?-?-?-?- 16w 5d 137 lb 2 oz 110/60 Negative -?-?-?-?-?-?-?-?-?-?-?-?- Negative 151 ? ? -?-?-?-?-?-?-?-?-?-?-?-?- ? ? MH-NO VB, LOF. Starting to feel flutters. [facility] 09/2610/01/21-?-?-?-?-?-?-?-?-?-?-?-?- 20w 5d 142 lb 112/60 Negative -?-?-?-?-?-?-?-?-?-?-?-?- Negative 148 ? ? -?-?-?-?-?-?-?-?-?-?-?-?- ? ? MH-No VB, LOF. Good FM. Has nasal congestion, med list given 10/30/21-?-?-?-?-?-?-?-?-?-?-?-?- 24w 6d 143 lb 6 oz 100/70 Negative -?-?-?-?-?-?-?-?-?-?-?-?- Negative 125 24 ? -?-?-?-?-?-?-?-?-?-?-?-?- ? ? JV- no lof, vaginal bleeding, or cramping today. she had some cramping over the weekend that is resolved. gct ordered. 11/12/21-?-?-?-?-?-?-?-?-?-?-?-?- 26w 5d 148 lb 8 oz 118/66 Negative -?-?-?-?-?-?-?-?-?-?-?-?- Negative 147 26 ? -?-?-?-?-?-?-?-?-?-?-?-?- ? ? MH-No Vb, LOF. Good FM. 28 wk labs, larc. 11/29/21-?-?-?-?-?-?-?-?-?-?-?-?- 29w 1d 150 lb 8 oz 112/60 Negative -?-?-?-?-?-?-?-?-?-?-?-?- Negative 152 29 ? -?-?-?-?-?-?-?-?-?-?-?-?- ? ? JV- normal 28 week labs. tdap today. no complaints. 12/13/21-?-?-?-?-?-?-?-?-?-?-?-?- 31w 1d 153 lb 6 oz 104/62 Negative -?-?-?-?-?-?-?-?-?-?-?-?- Negative 135 30 ? -?-?-?-?-?-?-?-?-?-?-?-?- ? ? SM- no vb lof good fm no regualr ctx 12/27/21-?-?-?-?-?-?-?-?-?-?-?-?- 33w 1d 156 lb 108/62 Negative -?-?-?-?-?-?-?-?-?-?-?-?- Negative 135 32 ? -?-?-?-?-?-?-?-?-?-?-?-?- ? ? SM- no vb lof good fm no regular ctx 01/10/22-?-?-?-?-?-?-?-?-?-?-?-?- 35w 1d 157 lb 118/80 Negative -?-?-?-?-?-?-?-?-?-?-?-?- Negative 135 33 Cephalic 1-?-?-?-?-?-?-?-?-?- ?-?-?- 40 -2 SM- no vb lof good fm irr egular ctx. check growth us for low FH 01/17/22-?-?-?-?-?-?-?-?--?-?-?-?- 36w 1d 159 lb 2 oz 110/68 Negative -?-?-?-?-?-?-?-?-?-?-?-?- Negative 130 35 Cephalic 1-?-?-?-?-?-?-?-?-?- ?-?-?- ? ? SM- no vb lof good fm no reuglar ctx gbs done nl 01/24/22-?-?-?-?-?-?-?-?-?-?-?-?- 37w 1d 159 lb 8 oz 100/60 Negative -?-?-?-?-?-?-?-?-?-?-?-?- Negative 135 33 Cephalic -?-?--?-?-?-?-?-?-?-?-?-?- ? ? JV- oligo on scan (3cm) sending down to L&D for delivery ria last ate at 10 am. ACOG First Trimester First Trimester: Second Trimester Second Trimester: Signs and Symptoms of Labor, Selecting a care provider, Reproductive Life Planning & Contreception, Care Planning, Depression/Anxiety and Intimate Partner Violence; Discussed Tobacco Cessation Third Trimester Third Trimester: Pain Management Plans, Labor support person(s), Immediate Larc, Signs and Symptoms of Preeclampsia, Feeding Yes and Family Medical Leave or Disability Forms Diagnostics Diagnostics Diagnostics: ?? ? Glucose 1 Hr 50 gm 90 mg/dL (70-140) ?? ? Hgb 11.5 g/dL (12.0-15.0)? L ?? ? Hct 33.9 % (37-47)? L Details: HIV: Urine Culture: Sequential Screen: NIPT Screen: Results POC Urinalysis 2 Dip? (Clinic) Office Urine Glucose Negative ? ? Last Edit by Imelda Small on 01/24/22 10:5 5 Office Urine Protein Negative ? ? Last Edit by Imelda Small on 01/24/22 10:5 5 Coding Level of Care Code OB Routine Diagnoses Positive GBS test? B95.1 Genital herpes? A60.04 ? ? ? Herpes simplex infection site: vulvovaginitis Supervision of high risk , antepartum? O09.90 ? Z3A.37 ? ? ? Weeks of gestation: 37 weeks History of ? Z98.891 History of pre-eclampsia? Z87.59 Assessment and Plan Assessment and Plan (1) Positive GBS test: ?Status:?Acute ?Comment: Needs PCN at delivery (2) Genital herpes: ?Status:?Chronic ?Qualifiers: ?Herpes simplex infection site:?vulvovaginitis? Qualified Code(s):?A60.04 - Herpesviral vulvovaginitis ?Comment: valtrex at 36 wk (3) Supervision of high risk , antepartum: ?Status:?Acute ?Comment: PRR ANTONIO:02/13/22 GIRL Marilia PC: Alcides Alvarenga. Spouse:Jules (4) : ?Status:?Acute ?Qualifiers: ?Weeks of gestation:?37 weeks? Qualified Code(s):?Z3A.37 - 37 weeks gestation of ?Comment: wants NIPT-low risk.? declined ntd and carrier screening, anatomy nl (5) History of : ?Status:?Acute ?Comment: 2nd :previa; plans RCS with BS, scheduled for 02/06 ? @ 12 with JV (6) History of pre-eclampsia: ?Status:?Acute ?Comment: 1st . Elevated liver enzymes. starting baby asa ? ? ? Orders: Orders POC Urinalysis 2 Dip? (Clinic) Today ? ? plan for section now for oligohydramnios 37 weeks and h/o prior section
--- NOTE | 2022-01-24 17:26 | DCINST_ITS ---
Discharge Instructions Diet Discharge Diet: No restrictions Activity Discharge Activity: May Not Drive (for 2 weeks or while taking narcotic pain medications.), May Shower and May Take a Tub Bath (in 7 days.) May resume sexual activity in: 4-6 weeks Weight Bearing Status: Full weight bearing Lifting Restrictions: 20 pounds Dressing / Incision Call your doctor if your incision/area has: Continuous Slow Oozing, Sudden Increased Bleeding, Increased Pain/ Swelling, Increased Redness and Foul Smelling Discharge Call your doctor if you observe: Fever of 101 or Higher and Using more than 1 pad per hour Suture Line Care: Avoid Pulling/Pushing and Avoid Pinching/Bending Cleanse incision/area with: Soap & Water and Keep Dressing Clean & Dry Follow Up Care Please Follow Up With: Komal Canales DO When: Call [phone] to make an appointment for an incision check in 1-2 weeks. Test Results: Test results from this visit will be discussed in further detail at your follow- up appointment, if applicable. Discharge Plan Admission Admit Date/Time: 01/24/22 11:45 Primary Reason for Your Visit: cesaran section Attending Provider: Komal Canales Primary Care Provider: Bernie Calderon Primary Discharge Orders/Prescriptions Prescriptions: New ibuprofen 600 mg tablet 600 mg PO Q6H PRN (Reason: pain) 7 Days Qty: 30 0RF oxycodone-acetaminophen [Percocet] 5-325 mg tablet 1 tab PO Q4H PRN (Reason: pain) 7 Days Qty: 30 0RF Continued prenat.vits,srini,frb-kmrq-zbpbu Tablet 1 tab PO DAILY Discontinued acetaminophen [Tylenol] 325 mg Tablet cyclobenzaprine 10 mg tablet 10 mg PO TID PRN (Reason: muscle spasm) Qty: 30 0RF Referrals / Follow Up: Bernie Calderon Primary [Primary Care Provider] - Disposition Disposition (needs filled in before D/C Order can be placed): Home, Self Care
--- NOTE | 2022-01-24 17:57 | EX.PCM.OBRPT ---
Assessment & Plan (1) Oligohydramnios antepartum: (2) History of pre-eclampsia: COMMENT: 1st . Elevated liver enzymes. starting baby asa (3) Genital herpes: QUALIFIERS: Herpes simplex infection site: vulvovaginitis Qualified Code(s): A60.04 - Herpesviral vulvovaginitis COMMENT: valtrex at 36 wk (4) History of : COMMENT: 2nd :previa; plans RCS with BS, scheduled for 02/06 @ 12 with JV (5) : QUALIFIERS: Weeks of gestation: 37 weeks Qualified Code(s): Z3A.37 - 37 weeks gestation of COMMENT: wants NIPT-low risk. declined ntd and carrier screening, anatomy nl (6) Supervision of high risk , antepartum: COMMENT: PRR ANTONIO:02/13/22 GIRL Marilia PC: Alcides Alvarenga. Spouse:Jules (7) Positive GBS test: COMMENT: Needs PCN at delivery Maternal Data Information ANTONIO Calculator Estimated Delivery Date Method Current WG Current Estimate 02/13/22 Ultrasound #1 37w 1d Other Estimates 02/19/22 LMP (Uncertain) 36w 2d Final ANTONIO: 02/19/22 Final ANTONIO Source: LMP Details Operative Information Date of Procedure: 01/24/22 Pre-Operative Diagnosis: 31y/o @ 37 weeks 1day, oligohydramnios, prior section, desires repeat, desires permanent sterilization Post-Operative Diagnosis: 31y/o @ 37 weeks 1day, oligohydramnios, prior section, desires repeat, desires permanent sterilization Classification: Scheduled Procedure Type: low transverse flue tile press operator #1: Lisa Lomax Type of Anesthesia: Spinal Antibiotic Given: Ancef 2 grams IV x1 Estimated Blood Loss: 300cc Findings Description of Procedure: Procedure: The patient was brought to the operating room where spinal anesthesia was found to be adequate. She was prepped and draped in the normal sterile fashion and was placed in a dorsal supine position with a leftward tilt. Pfannenstiel skin incision was made with a scalpel and carried through to the underlying layers. The fascia was nicked in the midline and extended laterally using Montes scissors. The anterior aspect of the fascia was grasped with Nolan clamps and the underlying rectus muscles dissected off using the Metzenbaum scissors. The inferior aspect the fascia was also grasped with Nolan clamps and the underlying rectus muscle dissected off with the Metzenbaum scissors. The rectus muscles were in the midline. Peritoneum was entered sharply. The uterus was identified and a bladder blade was inserted into the abdomen. Bladder flap was created off the uterus using Metzenbaum scissors. A transverse incision was made with a scalpel and extended laterally manually. The 's head was grasped with the help of my environmental engineering assistant and fundal pressure the infant was delivered through the uterine incision without difficulty. The mouth and nares were bulb suctioned. After a 30 second delay the cord was clamped and cut. The end was handed off to the awaiting maple products maker for routine assessment. Placenta was delivered manually without difficulty. The uterus was exteriorized and cleared of all clots and debris. Incision was closed with an #1 Vicryl and #1 monocryl suture in a running locked fashion. Second layer of 1-0 monocryl suture was used in imbricating manner to create excellent closure and hemostasis. The tubal ligation procedure was performed next. The right tube was grasped with a Carmine clamp and the underlying mesosalpinx was cauterized and cut using the ligasure device. The same procedure was performed on the left side. The uterus was returned to the abdomen. The gutters were cleared of all clots and debris. The peritoneum was closed in a pursestring pattern using a 3-0 Vicryl suture. This muscle was reapproximated with a 3-0 Vicryl. The fascia was closed with a pds stratafix suture. Subcutaneous tissue layer was closed using a plain gut suture. The skin was closed with a 4-0 Monocryl subcuticular stitch. The skin was also sealed with surgical glue. The patient tolerated the procedure well sponge lap and needle counts were correct at each tissue closure plane and the patient is now being brought to the recovery room in stable condition Presentation: Positive for Vertex Amniotic Membrane Rupture Type: Spontaneous Amniotic Fluid Description: Clear Placental Delivery Description: Manual Removal Placenta Disposition: [facility] Cord Vessel Description: 3 Vessels Cord Entanglement: None A Gender: Female (1 minute): 8 (5 minute): 9 Delayed Cord Clamping: Yes Complications Risks of Surgery Discussed w/Patient: Bleeding, Anesthesia Risks, Infection, Need for Future C-Sections, Permanency, Failure Rate of 1 to 2%, Injury to surrounding structure(s) including bowel and bladder and Availability of other non-permanent control options Multi Select Codes Urinary/Genital Urinary/Genital CPT Codes: 43959 Delivery [facility]
[2022-01-24] MEDS: Oxytocin 30 units/NS 500 ml 30 UNITS/500 ML IV.SOLN 167 UNITS IV (18:15)
[2022-01-24] MEDS: 0.9% Saline Lock 10 ML Syringe IV (19:11)
[2022-01-24] MEDS: Acetaminophen 500 MG Tablet 1000 MG PO (19:11)
[2022-01-24] MEDS: Ketorolac 30 MG/ML Syringe IV (19:11)
[2022-01-24 21:13] LABS: Pathology Specimen OB SEE PATHOLOGY REPORT
[2022-01-24] MEDS: Lactated Ringers 1,000 ML 100 ML IV (21:29)
[2022-01-24] MEDS: Ondansetron 4 MG/2 ML Vial IV (21:35)
[2022-01-25] VITALS (8 sets, daily range): BP systolic 107–116; BP diastolic 61–70; PULSE 67–77; RESP 14–18; TEMP 36.3–36.7; O2SAT 96–100
[2022-01-25] MEDS: Ketorolac 30 MG/ML Syringe IV ×3 (01:46→13:41)
[2022-01-25] MEDS: Acetaminophen 500 MG Tablet 1000 MG PO ×4 (01:46→19:25)
[2022-01-25 05:38] LABS: Hematocrit 26.5 % (37-47); Hemoglobin 8.8 g/dL (12.0-15.0); Mean Corp Hgb Conc 33.2 g/dL (32-36); Mean Corpuscular Hgb 30.6 pg (27.0-32.0); Mean Platelet Vol. 10.8 fl (6.2-12.0); Platelet Count 124 K/mm3 (150-450); RBC Distribution Width CV 13.4 % (11.6-14.6); RBC Distribution Width SD 45.1 fl (35.1-43.9); Red Blood Count 2.88 M/mm3 (4.2-5.4); White Blood Count 9.7 K/mm3 (4.4-11.0)
--- NOTE | 2022-01-25 09:04 | PN.OBGYN_ITS ---
Subjective Subjective Patient is laying in bed comfortably without complaints. She states that she slept on an off during the night. Lochia is mild and pain is minimal. Objective Data Objective Data Vital Signs: Vital Signs Temp Pulse Resp BP Pulse Ox O2 Del Method 97.6 F L 74 18 107/61 99 Room Air 01/25/22 04:47 01/25/22 04:47 01/25/22 04:47 01/25/22 04:47 01/25/22 04:42 01/25/22 04:47 Oxygen Delivery Method Room Air Weight: 159 lb Body Mass Index (BMI) 25.7 Intake & Output: Intake and Output for Last 24 Hours 01/23/22 01/24/22 01/25/22 23:59 23:59 23:59 Intake Total 1230 / 1230 Output Total 250 / 250 300 / 300 Balance 980 / 980 -300 / -300 Lab / Micro Data Result Diagrams: 01/25/22 05:30 01/24/22 13:55 Labs: Laboratory Results - last 24 hr 01/24/22 13:00: U Random Total Protein 7.3, Urine Creatinine < 13.00, Prote in/Creatinin Ratio TNP 01/24/22 13:55: WBC 10.0, RBC 3.74 L, Hgb 11.4 L, Hct 33.8 L, MCV 90.4, MCH 30.5, MCHC 33.7, RDW Std Deviation 44.1 H, RDW Coeff of Miguel Angel 13.4, Plt Count 179, MPV 11.1 01/24/22 13:55: Creatinine 0.65, Estim Creat Clear Calc 117.40, Est GFR (MDRD) Af Amer 136, Est GFR (MDRD) Non-Af 113, Uric Acid 5.3, AST 13 L, ALT 18 01/24/22 13:55: Blood Type A POSITIVE, Antibody Screen NEGATIVE 01/25/22 05:30: WBC 9.7, RBC 2.88 L, Hgb 8.8 L, Hct 26.5 L, MCV 92.0, MCH 30.6, MCHC 33.2, RDW Std Deviation 45.1 H, RDW Coeff of Miguel Angel 13.4, Plt Count 124 L, MPV 10.8 Micro: Microbiology 01/24/22 13:00 Nasal Secretion SARS-CoV-2 Antigen (Rapid) - Final ROS Constitutional Constitutional: Reports systems reviewed and no addt'l complaints, except as documented Cardiovascular Cardiovascular: Denies chest pain, dizziness, dyspnea or irregular heart rhythm Respiratory/Chest Respiratory/Chest: Denies cough, pain on inspiration or shortness of breath at rest Gastrointestinal Gastrointestinal: Denies abdominal pain, nausea or vomiting Genitourinary Genitourinary: Denies burning urination Musculoskeletal Musculoskeletal: Denies muscle cramps, muscle spasms or muscle weakness Neurologic Neurologic: Denies confusion, dizziness, headache(s) or lack of coordination Psychiatric Psychiatric: Denies anxiety, behavioral changes or depression Physical Exam Const alert, oriented x3 and no apparent distress HEENT normocephalic Resp normal respiratory effort and normal air movement GI soft to palpation, non-tender and non-distended Rectal Exam: other Other Details: Incision is clean, dry, and intact no CVA tenderness Extremity normal to inspection General Extremity: edema bilateral (trace ) Assessment & Plan (1) Oligohydramnios antepartum: (2) Status post delivery: COMMENT: Marilia 01/24/22- BRIDGET (3) Anemia: PLAN: Plan s/p LTCS PPD # 1 1. routine post care 2. breast feeding- support given 3. rh positive 4. rubella immune 5. anemia- likely chronic as ebl was minimal. will start with venofer IV infusion 300 mg x 1 and repeat cbc in 4-6 weeks. pt is asymptomatic
[2022-01-25] MEDS: Sodium Ferric Gluconat 250 MG in 0.9% Normal Saline 250 ML 135 MG IV (09:43)
[2022-01-25] MEDS: Lactated Ringers 1,000 ML 100 ML IV (09:43)
[2022-01-25] MEDS: Senna/Docusate Sodium 1 Tablet PO (12:13)
[2022-01-25] MEDS: 0.9% Saline Lock 10 ML Syringe IV ×2 (12:15→13:42)
[2022-01-26 03:20] VITALS: BP 116/78; PULSE 70; RESP 15; TEMP 36.4; O2SAT 97
[2022-01-26] MEDS: Acetaminophen 500 MG Tablet 1000 MG PO (03:20)
[2022-01-26 07:31] VITALS: BP 117/82; PULSE 74; RESP 18; TEMP 36.4; O2SAT 98
== END 2022-01-26 09:00 | disposition home or self-care (01) | DRG 784 ==
PROVIDERS: Admitting Provider Obstetrics & Gynecology; Visit Provider Obstetrics & Gynecology
DX: O99.824 Streptococcus B carrier state complicating childbirth (principal); O98.32 Other infections with a predominantly sexual mode of transmission complicating childbirth; O41.03X0 Oligohydramnios, third trimester, not applicable or unspecified; O98.52 Other viral diseases complicating childbirth; A60.04 Herpesviral vulvovaginitis; O99.02 Anemia complicating childbirth; Z37.0 Single live birth; O34.219 Maternal care for unspecified type scar from previous cesarean delivery; N76.0 Acute vaginitis; Z87.59 Personal history of other complications of pregnancy, childbirth and the puerperium; Z98.1 Arthrodesis status; B95.1 Streptococcus, group B, as the cause of diseases classified elsewhere; Z3A.37 37 weeks gestation of pregnancy; Z30.2 Encounter for sterilization
CPT/HCPCS: 59050; 82565; 82570; 84156; 84450; 84460; 84550; 85027; 86850; 86900; 86901; 87811; 88302; 99218; 99251; J7050; J7120; A4216; G0378; G0463; J2405; J2916

== ENCOUNTER 2022-01-27 17:40 | Emergency (ER) | payer OTHER, BC, SELFPAY ==
[2022-01-27 17:41] VITALS: BP 125/96; PULSE 79; RESP 22; TEMP 36.2; O2SAT 100; BMI 25.3
--- NOTE | 2022-01-27 18:17 | EX.ED.DYSGE1 ---
HPI History of Present Illness Chief Complaint: Headache Informant: patient Narrative Narrative: Patient had spinal anesthesia for scheduled delivery on Thursday. She developed spinal type headache starting Thursday. If she lays flat she has essentially no headache. When she sits upright she gets a headache within 30 seconds. She will get nauseated with this. Headache is frontal in the back. If she lays back down the headache goes away. No fevers or chills. Her incision is doing well. She is not getting any notable edema. Swelling is down. She has been drinking a lot of caffeine and fluids trying to get rid of this but nothing is helping. She came in to see if she can get a blood patch to get some relief. She has also been taking Flexeril, Percocet and ibuprofen without any notable benefit. Of note this was a difficult spinal anesthesia due to her history of prior fusion for scoliosis. During the procedure she had a few zingers down her legs but this is gone. Those were brief and transient. She has no neurologic complaints. [facility] Medical History (Updated 01/27/22 @ 19:[address] Wang Patel MD) Chronic hypertension Cystocele Oligohydramnios Placental abnormality Home Medications prenat.vits,srini,[id number] 1 tab PO DAILY 07/09/21 [History Last Taken 01/23/22 21:00] ibuprofen 600 mg tablet 600 mg PO Q6H PRN pain 7 days #30 tabs 01/24/22 [Rx Last Taken Unknown] oxycodone-acetaminophen 5 mg-325 mg tablet (Percocet) 1 tab PO Q4H PRN pain 7 days #30 tabs 01/24/22 [Rx Last Taken Unknown] Allergy/AdvReac Type Severity Reaction Status Date / Time ciprofloxacin [From Cipro] AdvReac Unknown Unknown Verified 01/27/22 17:41 Family History Mother Breast cancer Thyroid disorder Father High cholesterol Hypertension Surgical History H/O oral surgery H/O spinal fusion History of surgery Previous section Social History adopted: No household members: spouse number of children: 2 current occupational status: unemployed Smoking Status: Never smoker alcohol intake: current alcohol intake frequency: holidays/special occasions only substance use type: does not use what type of physical activity do you participate in: running seatbelt use: always do you feel safe at home: Yes 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 ROS ED Constitutional Constitutional ED: Denies chills, fever(s), subjective or sweats Eyes Eyes: Denies change in vision ENT ENT ED: Denies rhinorrhea Cardiovascular Cardiovascular: Denies chest pain Respiratory/Chest Respiratory/Chest: Denies cough Gastrointestinal Gastrointestinal: Reports nausea; Denies abdominal pain Musculoskeletal Musculoskeletal: Denies arthralgias or myalgias Neurologic Neurologic: Reports headache(s); Denies paresthesias or weakness Hematologic/Lymphatic Hematologic/Lymphatic: Denies easy bleeding or easy bruising Allergic/Immunologic Allergic/Immunologic ED: Denies urticaria EXAM Physical Exam Const Vital Signs: 01/27/22 17:41 Temperature 97.1 F L Temperature Source Temporal Pulse Rate 79 Respiratory Rate 22 H Blood Pressure 125/96 H Blood Pressure Mean 105 Pulse Ox 100 Oxygen Delivery Method Room Air Positive well nourished and well developed Constitutional Narrative: Patient looks good, but she is also laying down in bed when I see her. This is a comfortable position for her. General Appearance ED: well developed and NAD HEENT Reports moist mucous membranes; Denies dry mucous membranes Mouth ED: No dry mucous membranes Mouth: No dry mucous membranes Eyes General Eye ED: Negative for scleral icterus Neck supple Neck Narrative: No meningismus Resp normal respiratory effort Cardio regular rate and regular rhythm GI normal to inspection, nondistended, normoactive bowel sounds and non-tender GI Narrative: And seizure and has clean dry dressing on it. No surrounding erythema or swelling. Back/Spine no CVA tenderness Extremity normal to inspection Extremity Narrative: No significant edema. No asymmetry. No rashes. Neuro oriented x3 Sensorium / Orientation: alert Psych mental status grossly normal Skin no rashes or lesions noted MDM MDM MDM Narrative Medical decision making narrative: We did give IV fluids here. Patient is comfortable laying down. But fluids do not significantly change her symptoms. I was able to talk to anesthesia. They are in the OR tonight. But they are able to do a blood patch first thing in the morning. Patient will follow up at registration and go to recovery room for blood patch at 8:00 in the morning. She is okay with this plan. She did not want anything specific for pain. Discharge Plan Triage Chief Complaint: Headache ED Provider: Wang Patel Dx/Rx/DC Orders Clinical Impression: Spinal headache Instructions: ED Headache After Spinal Tap ... Prescriptions: No Action prenat.vits,srini,[id number] Tablet 1 tab PO DAILY ibuprofen 600 mg tablet 600 mg PO Q6H PRN (Reason: pain) 7 Days Qty: 30 0RF oxycodone-acetaminophen [Percocet] 5-325 mg tablet 1 tab PO Q4H PRN (Reason: pain) 7 Days Qty: 30 0RF Primary Care Provider: Care Physician,No Primary Referrals: Care Physician,No Primary [Primary Care Provider] - Activity Restrictions/Additional Instructions: Follow-up at registration at 8 in the morning and tell them that you are here for a blood patch with anesthesia. He will likely be directed to the recovery room at that time for the procedure. Disposition Disposition: Home, Self Care
[2022-01-27] MEDS: 0.9% Normal Saline 1,000 ML 999 ML IV (19:13)
[2022-01-27 20:05] VITALS: BP 124/91; PULSE 62; RESP 18; O2SAT 97
== END 2022-01-27 20:08 | disposition home or self-care (01) ==
PROVIDERS: Emergency Provider Emergency Medicine; Visit Provider Emergency Medicine
DX: G44.89 Other headache syndrome (principal)
CPT/HCPCS: 96360; 99282; J7030; A4216

== ENCOUNTER → 2022-01-28 | Day surgery (SDC) | payer OTHER, BC, SELFPAY ==
[2022-01-28] MEDS: Lactated Ringers 1,000 ML 999 ML IV (08:50)
== END | disposition home or self-care (01) ==
LOC: SDC 08:01
PROVIDERS: Visit Provider Anesthesiology
PROC: 3E0R3GC Introduction of Other Therapeutic Substance into Spinal Canal, Percutaneous Approach (ICD-10-PCS; CPT 62273; principal; 2022-01-28 07:55)
DX: O89.4 Spinal and epidural anesthesia-induced headache during the puerperium (principal)
CPT/HCPCS: 62273; J7120

== ENCOUNTER → 2023-04-17 | Outpatient (CLI) | payer BC, SELFPAY ==
[2023-04-17 18:51] LABS: Estradiol 128.7 pg/mL; Follicle Stimulating Hormone 4.6 mIU/mL; Luteinizing Hormone 4.9 mIU/mL; T4 Free Direct 0.88 ng/dL (0.76-1.46); Thyroid Stim Hormone (TSH) 1.57 uIU/mL (0.358-3.74)
== END | disposition home or self-care (01) ==
PROVIDERS: Referring Provider Obstetrics & Gynecology; Visit Provider Obstetrics & Gynecology
DX: N93.9 Abnormal uterine and vaginal bleeding, unspecified (principal); Z13.29 Encounter for screening for other suspected endocrine disorder
CPT/HCPCS: 36415; 82627; 82670; 83001; 83002; 83516; 84439; 84443; 82626

== ENCOUNTER → 2023-04-28 | Outpatient (CLI) | payer BC, SELFPAY ==
--- NOTE | 2023-04-28 12:21 | US_ITS ---
INDICATION: abnormal periods EXAMINATION: Ultrasound US Pelvis Non OB Complete With Transvaginal Imaging TECHNIQUE: Transabdominal and transvaginal pelvic ultrasound was performed. Grayscale, spectral waveform, and color flow Doppler evaluation of the adnexa. COMPARISON: FINDINGS: UTERUS: Anteverted. The uterus measures 8.7 x 5.3 x 3.5 cm. There is no uterine mass. The endometrial stripe measures 4.9 mm in AP diameter which is within normal limits. Nabothian cysts. RIGHT OVARY: 2.2 x 1.6 x 1.7 cm. Non-enlarged, normal echogenicity. There is normal Doppler present in the right ovary. LEFT OVARY: 3.0 x 2.3 x 1.9 cm. Non-enlarged, normal echogenicity. There is normal Doppler present in the left ovary. FREE FLUID: None. US/Pelvic (Non ) IMPRESSION: Nabothian cysts. Electronically Signed: Kash Mendez DO at 23:32 EST Reading Location ID and State: [facility] / [place] Tel [phone], Service support ,
== END | disposition home or self-care (01) ==
PROVIDERS: Referring Provider Obstetrics & Gynecology; Visit Provider Obstetrics & Gynecology
DX: N93.9 Abnormal uterine and vaginal bleeding, unspecified (principal)
CPT/HCPCS: 76830; 76856

== ENCOUNTER 2023-10-17 14:53 | Emergency (ER) | payer OTHER, BC, SELFPAY ==
[2023-10-17 14:54] VITALS: BP 121/78; PULSE 75; RESP 16; TEMP 36.9; O2SAT 100; BMI 23.6
--- NOTE | 2023-10-17 15:13 | US_ITS ---
INDICATION: abdomen pain EXAMINATION: Ultrasound US Abdomen RUQ (limited) TECHNIQUE: Calderon-scale and color Doppler imaging was performed of the abdomen. COMPARISON: FINDINGS: LIVER: There is normal echotexture measuring 14.2 cm. No focal hepatic lesion. No intrahepatic biliary ductal dilatation. There is no free fluid. GALLBLADDER AND BILIARY TREE: Cholelithiasis. No pericholecystic fluid or gallbladder wall thickening is demonstrated. The proximal common bile duct measures 4.1 mm, which is within normal limits for the patient''s age. SONOGRAPHIC RAVI''S SIGN: Negative. PANCREAS: No focal abnormality is demonstrated in the pancreas. Limited visualization of the pancreatic tail. No pancreatic ductal dilatation. RIGHT KIDNEY: 10.8 x 5.5 x 4.5 cm. The cortex is 10 mm. There is no hydronephrosis. No shadowing calculus, focal lesion, or perinephric collection is demonstrated. VESSELS: Submitted longitudinal images of the intra-abdominal aorta demonstrate no gross abnormalities and are unremarkable. The IVC is patent. US/Gallbladder IMPRESSION: Cholelithiasis. No significant biliary dilatation. Electronically Signed: Kash Mendez DO at 16:13 EDT Reading Location ID and State: [id number] / [place] Tel [phone], Service support ,
--- NOTE | 2023-10-17 15:29 | EX.ED.DYSGE1 ---
HPI <EDISON Rick - Last Filed: 10/17/23 16:28> History of Present Illness Chief Complaint: Abd Pain Narrative Narrative: Patient is a 33-year-old female with no significant medical history presents to the emergency department for 3 days of right upper quad abdominal pain that radiates to her back. Patient states she has had diarrhea this morning, she states she is losing appetite, and is having worsening pain with movement. Patient denies any vomiting however does have nausea. She denies any fever or chills. She is concerned of possible gallbladder. Patient surgeries include tubal ligation, . PFS <EDISON Rick - Last Filed: 10/17/23 16:28> [facility] Medical History Chronic hypertension Cystocele History of pre-eclampsia Oligohydramnios Oligohydramnios antepartum Placental abnormality Positive GBS test Supervision of high risk , antepartum Home Medications melatonin 3 mg capsule 3 mg PO HS PRN sleep 04/17/23 [History Last Taken Unknown] ondansetron 4 mg disintegrating tablet 4 mg PO Q8H PRN PRN Nausea #10 tabs 10/17/23 [Rx Last Taken Unknown] Allergy/AdvReac Type Severity Reaction Status Date / Time ciprofloxacin [From Cipro] AdvReac Unknown Unknown Verified 10/17/23 14:54 Family History Mother Breast cancer Thyroid disorder Father High cholesterol Hypertension Prostate cancer Surgical History H/O oral surgery H/O spinal fusion History of History of surgery Previous section Status post delivery Social History adopted: No household members: spouse number of children: 3 current occupational status: unemployed Smoking Status: Never smoker alcohol intake: current alcohol intake frequency: holidays/special occasions only substance use type: does not use caffeine: Yes what type of physical activity do you participate in: walking and running frequency: 3-4 times per week seatbelt use: always do you feel safe at home: Yes 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 Positive for right upper quadrant pain, right back pain, nausea : Negative for any urinary frequency, dysuria, retention, blood in urine Muscle skeletal: Negative for any neck pain, back pain Neurological: Negative for any headache, syncope, dizziness Skin: Negative for any rashes, itching, abrasions, lacerations Psychiatric: Negative for any depression, anxiety, stress, suicidal ideation, homicidal ideation Hematologic: Negative for any excessive bruising, easy bleeding EXAM <EDISON Rick - Last Filed: 10/17/23 16:28> Physical Exam Narrative Exam Narrative: Vital signs reviewed. HEET: Head normocephalic atraumatic, TMs clear bilaterally. Posterior pharynx is clear, moist mucous membranes. Nares clear bilaterally. Neck: Supple with no lymphadenopathy or tenderness. No signs of meningismus. Cardiac: Regular rate and rhythm no murmurs gallops or rubs, equal peripheral pulses bilaterally. Respiratory: Lungs clear to auscultation bilaterally. No chest tenderness. Abdomen: Soft, nontender, nondistended. No abdominal bruit or pulsatile masses. No hepatosplenomegaly Extremities: No peripheral edema, no signs of gross trauma or deformity. Active full range of motion of all extremities. Neuro: Cranial nerves II through XII intact, no focal neurological deficits. Skin: Clean dry and intact with no rash, purpura, petechiae, vesicles or pustules. Backs/flank: No CVA tenderness, no midline spinal tenderness, no deformity. Psych: Normal mood and affect. No SI, HI or acute psychosis. Const Vital Signs: 10/17/23 14:54 10/17/23 16:08 Temperature 98.5 F 98.5 F Temperature Source Oral Pulse Rate 75 74 Respiratory Rate 16 16 Blood Pressure 121/78 H 125/83 H Blood Pressure Mean 92 97 Pulse Ox 100 100 Oxygen Delivery Method Room Air <Dr. Pedro Le, DO - Last Filed: 10/17/23 16:56> Physical Exam Const Vital Signs: 10/17/23 14:54 10/17/23 16:08 Temperature 98.5 F 98.5 F Temperature Source Oral Pulse Rate 75 74 Respiratory Rate 16 16 Blood Pressure 121/78 H 125/83 H Blood Pressure Mean 92 97 Pulse Ox 100 100 Oxygen Delivery Method Room Air MDM <EDISON Rick - Last Filed: 10/17/23 16:28> [facility] Lab Data Labs: Laboratory Results - last 24 hr 10/17/23 15:20 WBC 5.5 RBC 4.66 Hgb 13.7 Hct 41.4 MCV 88.8 MCH 29.4 MCHC 33.1 RDW Std Deviation 44.3 H RDW Coeff of Miguel Angel 13.6 Plt Count 177 MPV 10.0 Immature Gran % (Auto) 0.400 Neut % (Auto) 71.4 H Lymph % (Auto) 16.8 L Allen % (Auto) 10.0 Eos % (Auto) 0.9 Baso % (Auto) 0.5 Absolute Neuts (auto) 3.9 Absolute Lymphs (auto) 0.93 Nucleated RBC % 0 Sodium 137 Potassium 3.8 Chloride 109 H Carbon Dioxide 24.0 Anion Gap 4 L BUN 14 Creatinine 0.79 Estim Creat Clear Calc 94.82 Est GFR (MDRD) Af Amer 107 Est GFR (MDRD) Non-Af 88 BUN/Creatinine Ratio 17.7 Glucose 83 Calcium 8.7 Total Bilirubin 0.80 AST 16 ALT 18 Alkaline Phosphatase 59 Total Protein 7.6 Albumin 3.8 Globulin 3.8 Albumin/Globulin Ratio 1.0 Lipase 43 Radiography Diagnostic Testing: Clinical Impression(s) from Imaging Studies Gallbladder Ultrasound 10/17/23 15:13 IMPRESSION: Cholelithiasis. No significant biliary dilatation. Electronically Signed: Kash Mendez DO at 16:13 EDT , Treatment and Re-Evaluation :: Differential diagnosis includes however is not limited to: Gastritis, acute cholecystitis, pancreatitis, duodenal ulcer Patient appears to be in no obvious distress, patient's vital signs are stable. Patient presents to the emergency department complaints of right upper quadrant abdominal pain that radiates to her back. Patient does have some nausea, lack of appetite. Patient will receive some basic laboratory values including CBC CMP lipase, right upper quadrant ultrasound be completed, patient be given GI cocktail. Patient's laboratory values showed normal CBC, patient's chemistries were unremarkable, negative for any transaminitis. Patient's ultrasound shows cholelithiasis, no significant biliary dilatation, no evidence of any cholecystitis. Patient will be discharged home. Patient will be given nausea medicine, for home. She will follow-up with surgery outpatient. She was given strict return precaution to return for any abdominal pain, nausea or vomiting. All questions answered, stable for discharge. <Dr. Pedro Moralez, DO - Last Filed: 10/17/23 16:56> MDM MDM Narrative Medical decision making narrative: Interventions / MDM: Differential diagnosis: Cholelithiasis, right upper quadrant pain Diagnosis considered but do not suspect: No clinical cholecystitis, negative imaging for cholecystitis. My EKG interpretation: N/A Imaging independently reviewed and interpreted by myself: Right upper quadrant ultrasound: Cholelithiasis without cholecystitis. Normal common bile duct of 4.1 mm. 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 I perform my own [id number] evaluation. I agree with the plan of work-up. Right upper quadrant pain 2 days after eating grilled cheese. Symptoms subsided. Issues when she was 2 years ago that was self-limiting. No fevers. No current vomiting. Exam minimal tenderness right upper quadrant. Abdominal labs normal ultrasound notes multiple cholelithiasis no signs of cholecystitis. Treated with Toradol. She request follow-up with [facility] general surgery. She will avoid dairy foods greasy foods and fatty foods. She is given follow-up information. All questions were answered. Re-evaluation: stable Disposition discussed with patient/family/significant other: Patient Case discussed with consulting clinician: N/A This note was generated with Hidden[employer] dictation software. It may contain incorrect words, spelling, and punctuation that were not noted in checking the note before signing. Lab Data Attestation: I reviewed the patient's lab results. Labs: Laboratory Results - last 24 hr 10/17/23 15:20 WBC 5.5 RBC 4.66 Hgb 13.7 Hct 41.4 MCV 88.8 MCH 29.4 MCHC 33.1 RDW Std Deviation 44.3 H RDW Coeff of Miguel Angel 13.6 Plt Count 177 MPV 10.0 Immature Gran % (Auto) 0.400 Neut % (Auto) 71.4 H Lymph % (Auto) 16.8 L Allen % (Auto) 10.0 Eos % (Auto) 0.9 Baso % (Auto) 0.5 Absolute Neuts (auto) 3.9 Absolute Lymphs (auto) 0.93 Nucleated RBC % 0 Sodium 137 Potassium 3.8 Chloride 109 H Carbon Dioxide 24.0 Anion Gap 4 L BUN 14 Creatinine 0.79 Estim Creat Clear Calc 94.82 Est GFR (MDRD) Af Amer 107 Est GFR (MDRD) Non-Af 88 BUN/Creatinine Ratio 17.7 Glucose 83 Calcium 8.7 Total Bilirubin 0.80 AST 16 ALT 18 Alkaline Phosphatase 59 Total Protein 7.6 Albumin 3.8 Globulin 3.8 Albumin/Globulin Ratio 1.0 Lipase 43 Radiography Diagnostic Testing: Clinical Impression(s) from Imaging Studies Gallbladder Ultrasound 10/17/23 15:13 IMPRESSION: Cholelithiasis. No significant biliary dilatation. Electronically Signed: Kash Mendez DO at 16:13 EDT Reading Location ID and State: [facility] / [place] Tel [phone], Service support , Discharge Plan Triage Chief Complaint: Abd Pain ED Midlevel Provider: Aneudy Garcia ED Provider: Pedro Moralez Dx/Rx/DC Orders Clinical Impression: Cholelithiasis, Biliary colic Instructions: Abdominal Pain, ED Gallstones with Biliary Colic Prescriptions: New ondansetron 4 mg tablet,disintegrating 4 mg PO Q8H PRN PRN (Reason: Nausea) Qty: 10 0RF No Action melatonin 3 mg capsule 3 mg PO HS PRN (Reason: sleep) Primary Care Provider: Silvio Alexandra Referrals: Marlon Tyson MD [Med Staff - Active Staff] - Prashanth Cooper MD [Non-Staff] - Care Physician,No Primary [Non-Staff] - Activity Restrictions/Additional Instructions: Please follow-up outpatient. Disposition Disposition: Home, Self Care Discharge Date/Time: 10/17/23 16:32
[2023-10-17 15:37] LABS: Absolute Lymphocyte Count 0.93 X10^3/uL (0.83-4.51); Absolute Neutrophil Count 3.9 X10^3/uL (2.0-7.7); Basophil# 0.03 X10^3/uL; Basophil% 0.5 % (0-1); Eosinophil# 0.05 X10^3/uL; Eosinophils% 0.9 % (0-5); Hematocrit 41.4 % (37-47); Hemoglobin 13.7 g/dL (12.0-15.0); Lymphocyte # 0.93 X10^3/ul (0.83-4.51); Lymphocyte % 16.8 % (19-41); Mean Corp Hgb Conc 33.1 g/dL (32-36); Mean Corpuscular Hgb 29.4 pg (27.0-32.0); Mean Corpuscular Volume 88.8 fL (81-99); Monocyte# 0.55 X10^3/uL; NRBC Flagged by Analyzer 0 % (0-5); Neutrophil # 3.94 X10^3/uL (2.7-7.7); Neutrophil % 71.4 % (47-70); Platelet Count 177 K/mm3 (150-450); RBC Distribution Width CV 13.6 % (11.6-14.6); RBC Distribution Width SD 44.3 fl (35.1-43.9); Red Blood Count 4.66 M/mm3 (4.2-5.4); White Blood Count 5.5 K/mm3 (4.4-11.0)
[2023-10-17] MEDS: Mag Hydrox/Al Hydrox/Simeth 30 ML UDC PO (15:39)
[2023-10-17 15:54] LABS: AST(SGOT) 16 U/L (15-37); Alanine Aminotransfer ALT/SGPT 18 U/L (13-56); Albumin, Serum 3.8 g/dL (3.2-5.0); Alkaline Phosphatase 59 U/L (45-117); Anion Gap 4 (5-15); BUN 14 mg/dL (7-18); BUN/Creat Ratio 17.7 RATIO (10-20); Calcium,Total 8.7 mg/dL (8.5-10.1); Chloride 109 mmol/L (98-107); Creatinine, Serum 0.79 mg/dL (0.55-1.02); EST Glomerular Filtration Rate 88 mL/min (>60); Est Glom Filt Rate - Afr Amer 107 mL/min (>60); Estimated Creatinine Clearance 94.82 ml/min; Globulin 3.8 g/dL (2.2-4.2); Glucose 83 mg/dL (74-106); Lipase 43 U/L (13-75); Potassium 3.8 mmol/L (3.5-5.1); Protein, Total 7.6 g/dL (6.4-8.2); Sodium Level 137 mmol/L (136-145)
[2023-10-17 16:08] VITALS: BP 125/83; PULSE 74; RESP 16; TEMP 36.9; O2SAT 100
--- NOTE | 2023-10-17 16:11 | ED.RN ---
PT ATTEMPTED TO DRINK GI COCKTAIL. UNABLE
--- NOTE | 2023-10-17 16:14 | ED.RN ---
pt did not want GI cocktail
[2023-10-17] MEDS: Ketorolac 15 MG/ML Vial IV (16:15)
[2023-10-17] MEDS: Ondansetron 4 MG/2 ML Vial IV (16:15)
== END 2023-10-17 16:32 | disposition home or self-care (01) ==
PROVIDERS: Nurse Practitioner; Emergency Provider Emergency Medicine; PCP Family Medicine; Visit Provider Emergency Medicine
DX: K80.50 Calculus of bile duct without cholangitis or cholecystitis without obstruction (principal); K80.20 Calculus of gallbladder without cholecystitis without obstruction; I10 Essential (primary) hypertension
CPT/HCPCS: 76705; 80053; 83690; 85025; 96374; 96375; 99283; J2405

== ENCOUNTER → 2024-05-06 | Outpatient (CLI) | payer OTHER, BC, SELFPAY ==
--- NOTE | 2024-05-06 14:23 | BI_ITS ---
MAMMOGRAPHY - BILATERAL DIAGNOSTIC REASON FOR EXAM: Female, 34 years old. Right breast pain. PERTINENT HISTORY: Mother with breast cancer. Aunt with breast cancer. TECHNIQUE: Digital bilateral breast arlette (3D mammographic acquisition) in the CC and MLO projections. 2-D mediolateral oblique (MLO) and craniocaudad (CC) views of both breasts were obtained. CAD: Full Field Digital Mammography with Computer Added Detection was performed. COMPARISON: Comparison is made with prior study February 10, 2021. FINDINGS: Breast Composition: The breasts are heterogeneously dense, which may obscure small masses. There are no dominant masses or suspicious calcifications. No other significant abnormalities are identified. There has been no significant change since the prior study. BI/DIAG MAMM W/CAD, BILAT IMPRESSION: Stable bilateral diagnostic mammogram. With the patient''s history of pain in the right breast, correlation with ultrasound recommended. ASSESSMENT CATEGORY: BIRADS Category 0: Incomplete. Need additional imaging evaluation. A letter regarding these results will be sent to the patient by the facility within 30 days. Approximately 10% of breast cancers are not detected by mammography. A normal mammogram should not delay biopsy of a clinically suspicious abnormality. Electronically Signed: Jc Gaytan MD at 15:34 EST ,
--- NOTE | 2024-05-06 14:23 | US_ITS ---
STUDY: ULTRASOUND BREAST - RIGHT REASON FOR EXAM: Female, 34 years old. Right breast pain. TECHNIQUE: Axial and longitudinal images of the RIGHT breast were performed with a high resolution ultrasound transducer. # OF IMAGES: 48 COMPARISON: Comparison is made with prior mammogram dated May 06, 2024. FINDINGS: RIGHT Breast: The lateral aspect of the right breast was examined with ultrasound. The area of pain corresponds to a 7 mm x 10 mm x 4 mm benign appearing lymph node at the 9:00 position of the breast at 3 cm from the nipple. Incidental note is made of a 3 mm x 3 mm x 3 mm cyst at the 12:00 position the breast at 1 cm from the nipple. US/Breast Limited Unilateral IMPRESSION: The area of pain corresponds to a 7 mm x 10 mm x 4 mm benign-appearing lymph node. ASSESSMENT CATEGORY: BIRADS Category 2: Benign. A letter regarding these results will be sent to the patient by the facility within 30 days. Electronically Signed: Jc Gaytan MD at 9:13 EST ,
== END | disposition home or self-care (01) ==
PROVIDERS: PCP Family Medicine; Referring Provider Nurse Practitioner Women's Health; Visit Provider Nurse Practitioner Women's Health
DX: N64.4 Mastodynia (principal); Z80.3 Family history of malignant neoplasm of breast
CPT/HCPCS: 76642; 77062; 77066; G0279